=== PATIENT | female | born 1995 | race Hispanic/Latino ===

== ENCOUNTER → 2020-09-21 13:02 | Outpatient (CLI) | payer OTHER, SELFPAY ==
--- NOTE | 2020-09-21 13:05 | DI.US.S_ITS ---
PROCEDURE: US PELVIC COMPLETE INDICATIONS: RIGHT LOWER QUADRANT PAIN X 1 YEAR TECHNIQUE: Real-time scanning was performed of the pelvic organs, with image documentation. Additional endovaginal scanning was necessary due to incomplete visualization of the adnexal and endometrial structures by transabdominal scanning. COMPARISON: None. FINDINGS: Uterus: Uterus is normal in size at 8.1 x 4.4 x 3.5 cm. The endometrium measures 7.4 mm in combined thickness. Ovaries: Normal left ovary measuring 3.4 x 2.7 x 2.3 cm. The right ovary is suboptimally visualized secondary surrounding bowel. Within these limits the left ovary appears prominent measuring 5.2 x 2.2 x 3.3 cm. Other: No pathologic free abdominal or pelvic fluid. IMPRESSION: 1. The right ovary is not well visualized but appears to be mildly prominent in appearance. Recommend short-term follow-up ultrasound in 4-6 weeks for further assessment. 2. Normal appearance of the left ovary. Dictated by: Bulmaro BLANCO Interpreted: Kirk Grant MD on 09/21/2020 at 16:51 Approved by: Kirk Grant M.D. on 09/21/2020 at 17:28
[2020-09-21 14:06] LABS: Hematocrit 39.4 % (36-46); Hemoglobin 13.1 g/dL (12.0-16.0); Mean Corpuscular HGB Conc 33.4 % (30-36); Mean Corpuscular Hemoglobin 28.2 PG (26-34); Mean Corpuscular Volume 84.5 fL (80-100); Platelet Count 274 X10^3/uL (150-400); Red Blood Cell Count 4.66 X10^6/uL (4.0-5.2); Red Cell Distribution Width 13.1 % (11.6-14.8); White Blood Cell Count 7.8 X10^3/uL (4.5-11.0)
[2020-09-21 14:13] LABS: Bacteria Urine None Seen; RBC Urine None Seen (0-5/HPF); WBC Urine None Seen (0-5/HPF)
[2020-09-21 14:17] LABS: Alanine Aminotransferase 56 IU/L (<35); Albumin 4.5 g/dL (3.5-5.0); Albumin Globulin Ratio 1.2 (1.0-2.8); Alkaline Phosphatase 84 U/L (38-126); Aspartate Aminotransferase 37 IU/L (14-36); BUN Creatinine Ratio 22.6 (6-22); Bilirubin Total 0.3 mg/dL (0.2-1.3); Blood Urea Nitrogen 14 mg/dL (7-17); Calcium 9.4 mg/dL (8.4-10.2); Carbon Dioxide 27 mmol/L (22-32); Chloride 102 mmol/L (98-107); Cholesterol 162 mg/dL (140-199); Estimated Glomerular Filt Rate > 60.0 mL/min (>60); Globulin 3.9 g/dL (1.7-4.1); Glucose 108 mg/dL (70-100); HDL Cholesterol 45 mg/dL (40-60); HEMOLYSIS < 15 (0-50); LDL Cholesterol Calculated 96 mg/dL (<100); Potassium 4.2 mmol/L (3.4-5.1); Sodium 136 mmol/L (137-145); Total Protein 8.4 g/dL (6.3-8.2); Triglycerides 103 mg/dL (35-150)
[2020-09-21 15:07] LABS: TSH w/ Reflex to FT4 2.34 uIU/mL (0.47-4.68)
[2020-09-21 15:37] LABS: Appearance Urine UA CLEAR; Bilirubin Urine UA NEGATIVE (NEGATIVE); Color Urine UA YELLOW; Glucose Urine UA NEGATIVE (Negative); Ketones Urine UA NEGATIVE (NEGATIVE); Leukocyte Esterase Urine UA NEGATIVE (NEGATIVE); Nitrite Urine UA NEGATIVE (Negative); Occult Blood Urine UA NEGATIVE (Negative); Protein Urine UA NEGATIVE (Negative); Specific Gravity Urine UA <=1.005 (1.000-1.035); Urobilinogen Urine UA 0.2 E.U./dL (0.2)
[2020-09-21 15:45] LABS: Culture Indicated Urine Cult Not Indicated
== END ==
PROVIDERS: PCP Registered Nurse Diabetes Educator; Referring Provider Registered Nurse Diabetes Educator; Visit Provider Registered Nurse Diabetes Educator
DX: R10.31 Right lower quadrant pain (principal); E66.9 Obesity, unspecified; Z83.3 Family history of diabetes mellitus
CPT/HCPCS: 36415; 76830; 76856; 80053; 80061; 81001; 84443; 85027

== ENCOUNTER → 2020-10-03 18:16 | Outpatient (CLI) | payer OTHER, SELFPAY | PROVIDERS: PCP Registered Nurse Diabetes Educator; Referring Provider Registered Nurse Diabetes Educator; Visit Provider Registered Nurse Diabetes Educator | DX: R51.9 Headache, unspecified (principal); Z53.20 Procedure and treatment not carried out because of patient's decision for unspecified reasons; Z82.49 Family history of ischemic heart disease and other diseases of the circulatory system ==

== ENCOUNTER → 2020-11-08 14:36 | Outpatient (CLI) | payer OTHER, SELFPAY ==
[2020-11-08 16:22] LABS: Appearance Urine UA CLEAR; Bilirubin Urine UA NEGATIVE (NEGATIVE); Color Urine UA YELLOW; Glucose Urine UA NEGATIVE (Negative); Ketones Urine UA NEGATIVE (NEGATIVE); Leukocyte Esterase Urine UA 2+ (NEGATIVE); Nitrite Urine UA NEGATIVE (Negative); Occult Blood Urine UA 2+ (Negative); Protein Urine UA NEGATIVE (Negative); Specific Gravity Urine UA 1.015 (1.000-1.035); Urobilinogen Urine UA 0.2 E.U./dL (0.2)
[2020-11-08 16:24] LABS: Add Manual Diff / Slide Review NO; Basophils Absolute Auto 0 /uL (0-100); Basophils Percent Auto 0.5 % (0-2); Eosinophils Absolute Auto 100 /uL (0-450); Eosinophils Percent Auto 0.6 % (2-4); Hematocrit 37.2 % (36-46); Hemoglobin 12.8 g/dL (12.0-16.0); Lymphocytes Absolute Auto 1500 /uL (1100-4500); Lymphocytes Percent Auto 18.7 % (25-40); Mean Corpuscular HGB Conc 34.4 % (30-36); Mean Corpuscular Hemoglobin 28.8 PG (26-34); Mean Corpuscular Volume 83.8 fL (80-100); Monocytes Absolute Auto 700 /uL (0-900); Monocytes Percent Auto 9.1 % (3-14); Neutrophils Absolute Auto 5700 /uL (1500-7000); Neutrophils Percent Auto 71.1 % (50-75); Platelet Count 250 X10^3/uL (150-400); Red Blood Cell Count 4.45 X10^6/uL (4.0-5.2); Red Cell Distribution Width 13.3 % (11.6-14.8); White Blood Cell Count 8.1 X10^3/uL (4.5-11.0)
[2020-11-08 16:38] LABS: Hemoglobin A1C% w Est Avg Glu 4.9 % (4.0-6.0)
[2020-11-08 16:39] LABS: Glucose 91 mg/dL (70-100)
[2020-11-08 16:55] LABS: pH Urine UA 6.5 (4.5-8.0)
[2020-11-08 16:56] LABS: Bacteria Urine Few (2-10); Culture Indicated Urine Cult Not Indicated; RBC Urine 1-5/HPF (0-5/HPF); Squamous Epithelial Cell Urine 1-5 /HPF (0-5/HPF); WBC Urine 1-5/HPF (0-5/HPF)
[2020-11-09 05:37] LABS: RPR Screen Non Reactive (Non Reactive)
[2020-11-09 07:10] LABS: Varicella IgG Antibody <135 index (Immune >165)
[2020-11-09 17:28] LABS: HIV 1 & 2 Ab/Ag 4th Gen Combo NEGATIVE (NEGATIVE); Hep C Virus Ab w/Reflex Quant NEGATIVE s/c (NEGATIVE); Hepatitis B Surface Antigen NEGATIVE s/c (NEGATIVE); Rubella Antibody IgG 4.4 IU/mL (>15)
== END ==
PROVIDERS: PCP Registered Nurse Diabetes Educator; Referring Provider Obstetrics & Gynecology; Visit Provider Obstetrics & Gynecology
DX: Z34.81 Encounter for supervision of other normal pregnancy, first trimester (principal)
CPT/HCPCS: 36415; 80055; 81003; 81015; 82947; 83036; 86787; 86803; 86850; 86900; 86901; 87086; 87389

== ENCOUNTER → 2020-11-16 15:41 | Outpatient (CLI) | payer OTHER, SELFPAY | PROVIDERS: PCP Registered Nurse Diabetes Educator; Referring Provider Obstetrics & Gynecology; Visit Provider Obstetrics & Gynecology | DX: Z36.0 Encounter for antenatal screening for chromosomal anomalies (principal); Z3A.11 11 weeks gestation of pregnancy | CPT/HCPCS: 36415 ==

== ENCOUNTER → 2020-12-13 12:54 | Outpatient (CLI) | payer OTHER, SELFPAY ==
--- NOTE | 2020-12-13 13:00 | DIET.PN ---
Dietary Progress Note Assessment: 25y F referred to nutrition for help with gestational obesity. Pt is 15w gestation still endorses N/V/constipation, takes Zofran 1-2x/d. This is pts 3rd - has two boys, 9yo and 6yo, weight hx 150#-->175#, second 180#-->210#, currently 244#. Pt lives with father, , and two kids Pt is motivated to change eating habits as she has DM and heart disease in both sides of family including in her father who lives with her. Pt cooks for her father, when asking how she cooks for him she says she watches his cholesterol and sodium intake but does not know how to cook for his DM. HT: 154.9cm WT: 111kg (-4kg in 2mo) BMI:46.3 doesn't eat breakfast-feels nauseous 2pm has snack heavy meal for dinner sometimes bedtime snack of sandwich or candy Usual Day: wakes 8am water in am sometimes half can Dr. Rowley gets kids ready for school by 9am cleans house 2hr and gets ready sits at kitchen table and watches tv has snack before kids get home from school: cuppa noodles or sandwich c chips (turkey, lettuce, tomato, pickles, sprague, mustard) preps kids afternoon snack 5pm cooks dinner and eats dinner at 6pm tacos, hamburgers, lasagna, spaghetti eats together as family cleans up house get ready for bed in bed by 9:30pm Exercise: Walks 10 min to and from kids' school for total 20min walks 45min around block with her father mostly during nice weather but not as much if raining or cold Labs: FBG 91, A1c 4.9 Nutrition Diagnosis: morbid obesity in r/t undesirable food choices, physical inactivity, and nutrition related knowledge deficit aeb BMI 46, pt is nearly +100# since first 10y ago, pt has inconsistent food pattern, pt reports not knowing how to read food labels or what to eat to be healthy. Interventions: 1. To support weight regulation and healthy , using handout, introduced pt to hunger scale to start to identify her hunger and fullness cues. Pt will start eating at a 3 and stopping at an 8 to better understand ideal meal timing and portion sizes for her body. 2. To support weight regulation, educated pt on plate balance using handout and food models. Encouraged pt to create meals and snacks which are 1/4 pro, 1/4 cho, and 1/2 F/nonstarchy veggies to ensure nutritional adequacy and appetite satisfaction limiting fruit to 2 servings per day. Encouraged pt to use this model for family meal planning. Pt and RD used food models to build and adjust favorite family meals to be healthier options including appropriate portion control. 3. To encourage healthy weight, encouraged pt to walk 30-60min daily. 4. Since pt has hx of GDM and has high BMI as well as in home father c DM2, educated pt on diabetic diet setting goal for her of 30-45g CHO/meal and 45-60g/meal for her father. This was reinforced c handout. Using food labels educated pt on reading food labels and adjusting based on serving size consumed, focusing on carbohydrate level. 5. Provided pt with several handouts to support her education including: [employer] Plate, Healthy Snacks <200kcals, Nutrition MNT. EER: 30-45g CHO/meal, limit added sugar, plate balance, daily 30-[address] Impression: Pt was very happy c education today. She had many realizations in session and is motivated to adjust diet of her household to be supportive of everyone's health. Pt very motivated to not pass DM and cardiovascular disease to her children and now has tools to better regulate eating and cooking to achieve this goal. Monitoring/Evaluations: pt will call RD to schedule f/u as needed
== END ==
PROVIDERS: PCP Registered Nurse Diabetes Educator; Referring Provider Registered Nurse Diabetes Educator; Visit Provider Registered Nurse Diabetes Educator
DX: O21.9 Vomiting of pregnancy, unspecified (principal); K59.00 Constipation, unspecified; Z71.3 Dietary counseling and surveillance; Z3A.15 15 weeks gestation of pregnancy
CPT/HCPCS: 97802

== ENCOUNTER → 2021-01-22 10:31 | Outpatient (CLI) | payer OTHER, SELFPAY ==
--- NOTE | 2021-01-22 10:33 | DI.US.S_ITS ---
PROCEDURE: US OB >= 14 WEEKS FETUS INDICATIONS: ANATOMY OUTSIDE/PRIOR DATING DATA: Last menstrual period (LMP): Unknown . LMP-based estimated date of delivery (AILEEN): Un known . First dating scan (date and location): 11/08/2020 . Estimated date of delivery (AILEEN) from first dating scan: 06/06/2021 . TECHNIQUE: Real-time scanning was performed of the fetus, with image documentation and biometric measurements. COMPARISON: [facility], , OB <= 14 WEEKS FETUS, 11/08/2020, 14:20. FINDINGS: General: A single living intrauterine gestation is present. Presentation: Variable. Placenta: Placental position is anterior , without previa. Amniotic fluid index: 16.7 cm, normal range is 5-24 cm. heart rate: 141 beats per minute. Maternal cervical canal: 6.1 cm long. Normal lower limit is 2.5 cm. biometrics: Biparietal diameter: 4.8 cm 20 weeks 4 days Head circumference: 18.4 cm 20 weeks 5 days Abdominal circumference: 17.2 cm 22 weeks 1 day Femur length: 3.4 cm 20 weeks 5 days Estimated gestational age from initial scan: 20 weeks 5 days Composite gestational age from present scan: 21 weeks 0 days Estimated weight and percentile: 421 g, 81st percentile Measurement variability for biometric dating: +/- 7 days from 14 weeks to 15 weeks 6 days gestation, +/- 10 days from 16 weeks to 21 weeks 6 days gestation, +/- 2 weeks from 22 weeks to 27 weeks 6 days gestation, +/- 3 weeks for 28 weeks gestation or later. weight reference: 4500 g or EFW >90/95% is considered macrosomia or large for gestational age. EFW <10% is small for gestational age. EFW 5% or less is considered intra-uterine growth restriction. Anatomic survey: Neuro: Ventricles are non-dilated at less than 10 mm. Cisterna magna is normal at 3-11 mm. Cerebellum is normal in size and morphology. Nuchal skin fold: Nuchal fold is noted to measure approximately 7.4 mm. Normal at less than 6 mm between 14-21 weeks gestational age. Face: Nose and lips, facial profile are normal. Spine: No evidence for spina bifida. Heart: 4-chambered heart is present, with normal ventricular outflow tracts. Diaphragm: Diaphragm is intact. Stomach: Left-sided stomach is present. Kidneys: No hydronephrosis. Normal is less than 5 mm in 2nd trimester, less than 7 mm in 3rd trimester. Cord: 3-vessel cord has orthotopic insertion. Bladder: Normal in size. Extremities: All 4 extremities identified. IMPRESSION: 1. Single live intrauterine . 2. Overall, in at any is within normal limits. 3. It is noted nuchal fold appears prominent. Recommend correlation with appropriate clinical history and laboratory values with follow-up imaging and specialized referral if indicated. Dictated by: Maira Peace M.D. on 01/22/2021 at 16:36 Approved by: Maira Peace M.D. on 01/22/2021 at 16:38
== END ==
PROVIDERS: PCP Registered Nurse Diabetes Educator; Referring Provider Obstetrics & Gynecology; Visit Provider Obstetrics & Gynecology
DX: Z34.82 Encounter for supervision of other normal pregnancy, second trimester (principal); Z3A.20 20 weeks gestation of pregnancy
CPT/HCPCS: 76811

== ENCOUNTER → 2021-03-01 13:26 | Outpatient (CLI) | payer OTHER, MEDICAID, SELFPAY ==
[2021-03-01 15:42] LABS: Hematocrit 34.2 % (36-46); Hemoglobin 11.5 g/dL (12.0-16.0)
[2021-03-01 15:52] LABS: GTT (PREG) 1 Hour PP 50gm Dose 135 mg/dL (76-139)
== END ==
PROVIDERS: PCP Registered Nurse Diabetes Educator; Referring Provider Obstetrics & Gynecology; Visit Provider Obstetrics & Gynecology
DX: Z34.82 Encounter for supervision of other normal pregnancy, second trimester (principal); Z3A.26 26 weeks gestation of pregnancy
CPT/HCPCS: 36415; 82950; 85014; 85018

== ENCOUNTER → 2021-04-08 13:46 | Outpatient (CLI) | payer OTHER, MEDICAID, SELFPAY ==
[2021-04-08 17:43] LABS: Hepatitis B Surface Antigen NEGATIVE s/c (NEGATIVE)
[2021-04-09 10:26] LABS: Bile Acids 11.1 umol/L (0.0-10.0); Hepatitis B Core AB w/Reflex Negative (Negative)
== END ==
PROVIDERS: PCP Registered Nurse Diabetes Educator; Referring Provider Obstetrics & Gynecology; Visit Provider Obstetrics & Gynecology
DX: O99.719 Diseases of the skin and subcutaneous tissue complicating pregnancy, unspecified trimester (principal); R74.8 Abnormal levels of other serum enzymes; L29.9 Pruritus, unspecified
CPT/HCPCS: 36415; 82239; 86704; 87340

== ENCOUNTER 2021-04-09 12:40 | Outpatient (CLI) | payer OTHER, MEDICAID, SELFPAY ==
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
== END 2021-04-09 13:35 | disposition home or self-care (01) ==
LOC: LABOR 13:39 → OB 04-11 13:22
PROVIDERS: PCP Registered Nurse Diabetes Educator; Referring Provider Obstetrics & Gynecology; Visit Provider Obstetrics & Gynecology
DX: O26.613 Liver and biliary tract disorders in pregnancy, third trimester (principal); K83.1 Obstruction of bile duct; Z3A.31 31 weeks gestation of pregnancy
CPT/HCPCS: 59025; G0378; G0379

== ENCOUNTER → 2021-04-15 12:11 | Outpatient (CLI) | payer OTHER, MEDICAID, SELFPAY ==
[2021-04-15 13:35] LABS: Alanine Aminotransferase 47 IU/L (<35); Albumin 3.2 g/dL (3.5-5.0); Albumin Globulin Ratio 0.9 (1.0-2.8); Alkaline Phosphatase 145 U/L (38-126); Aspartate Aminotransferase 35 IU/L (14-36); Bilirubin Total 0.4 mg/dL (0.2-1.3); Bilirubin Unconjugated 0.3 mg/dL (0.0-1.1); Globulin 3.5 g/dL (1.7-4.1); HEMOLYSIS < 15 (0-50); Total Protein 6.7 g/dL (6.3-8.2)
[2021-04-16 08:53] LABS: Bile Acids 6.2 umol/L (0.0-10.0)
== END ==
PROVIDERS: PCP Registered Nurse Diabetes Educator; Referring Provider Obstetrics & Gynecology; Visit Provider Obstetrics & Gynecology
DX: Z34.90 Encounter for supervision of normal pregnancy, unspecified, unspecified trimester (principal); K76.89 Other specified diseases of liver
CPT/HCPCS: 36415; 80076; 82239

== ENCOUNTER 2021-04-15 12:16 | Outpatient (CLI) | payer OTHER, MEDICAID, SELFPAY | END 2021-04-15 13:15 | disposition home or self-care (01) | LOC: LABOR 13:39 → OB 04-16 07:38 | PROVIDERS: PCP Registered Nurse Diabetes Educator; Referring Provider Obstetrics & Gynecology; Visit Provider Obstetrics & Gynecology | DX: O99.613 Diseases of the digestive system complicating pregnancy, third trimester (principal); K80.20 Calculus of gallbladder without cholecystitis without obstruction; O99.213 Obesity complicating pregnancy, third trimester; Z3A.32 32 weeks gestation of pregnancy; Z34.90 Encounter for supervision of normal pregnancy, unspecified, unspecified trimester; K76.89 Other specified diseases of liver | CPT/HCPCS: 36415; 59025; 80076; 82239; G0378; G0379 ==

== ENCOUNTER → 2021-04-22 11:55 | Outpatient (CLI) | payer OTHER, MEDICAID, SELFPAY ==
[2021-04-22 14:35] LABS: Alanine Aminotransferase 34 IU/L (<35); Albumin 3.1 g/dL (3.5-5.0); Albumin Globulin Ratio 0.9 (1.0-2.8); Alkaline Phosphatase 160 U/L (38-126); Aspartate Aminotransferase 28 IU/L (14-36); Bilirubin Total 0.2 mg/dL (0.2-1.3); Bilirubin Unconjugated 0.1 mg/dL (0.0-1.1); GTT (PREG) 1 Hour PP 50gm Dose 142 mg/dL (76-139); Globulin 3.3 g/dL (1.7-4.1); HEMOLYSIS < 15 (0-50); Total Protein 6.4 g/dL (6.3-8.2)
[2021-04-23 09:20] LABS: Bile Acids 36.8 umol/L (0.0-10.0)
== END ==
PROVIDERS: Obstetrics & Gynecology; PCP Registered Nurse Diabetes Educator; Referring Provider Family Medicine; Visit Provider Family Medicine
DX: O99.891 Other specified diseases and conditions complicating pregnancy (principal); K76.89 Other specified diseases of liver; R73.01 Impaired fasting glucose; Z3A.33 33 weeks gestation of pregnancy; Z83.3 Family history of diabetes mellitus
CPT/HCPCS: 36415; 80076; 82239; 82950

== ENCOUNTER 2021-04-22 11:59 | Outpatient (CLI) | payer OTHER, MEDICAID, SELFPAY ==
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
== END 2021-04-22 12:43 | disposition home or self-care (01) ==
LOC: LABOR 12:21 → OB 04-23 07:01
PROVIDERS: PCP Registered Nurse Diabetes Educator; Referring Provider Family Medicine; Visit Provider Family Medicine
DX: O26.613 Liver and biliary tract disorders in pregnancy, third trimester (principal); K83.1 Obstruction of bile duct; Z3A.33 33 weeks gestation of pregnancy; O99.891 Other specified diseases and conditions complicating pregnancy; K76.89 Other specified diseases of liver; R73.01 Impaired fasting glucose; Z83.3 Family history of diabetes mellitus
CPT/HCPCS: 36415; 59025; 80076; 82239; 82950; G0378; G0379

== ENCOUNTER → 2021-04-30 08:51 | Outpatient (CLI) | payer OTHER, SELFPAY ==
[2021-04-30 10:45] LABS: Glucose Fasting Gestational 93 mg/dL (76-95)
[2021-04-30 12:08] LABS: Glucose 1 Hour Gest 142 mg/dL (76-180)
[2021-04-30 13:07] LABS: Glucose 2 Hour Gest 122 mg/dL (76-155)
[2021-04-30 13:10] LABS: Glucose Tol Interp,Gestational INTERPRETATION
[2021-04-30 14:30] LABS: Glucose 3 Hour Gest 116 mg/dL (76-140)
[2021-05-04 11:51] LABS: Bile Acids 9.2 umol/L (0.0-10.0)
== END ==
PROVIDERS: PCP Registered Nurse Diabetes Educator; Referring Provider Obstetrics & Gynecology; Visit Provider Obstetrics & Gynecology
DX: O26.613 Liver and biliary tract disorders in pregnancy, third trimester (principal); K83.1 Obstruction of bile duct; O99.810 Abnormal glucose complicating pregnancy
CPT/HCPCS: 82951; 82952

== ENCOUNTER 2021-04-30 08:59 | Outpatient (CLI) | payer OTHER, SELFPAY | END 2021-04-30 09:46 | disposition home or self-care (01) | LOC: OB 05-01 15:22 | PROVIDERS: PCP Registered Nurse Diabetes Educator; Referring Provider Obstetrics & Gynecology; Visit Provider Obstetrics & Gynecology | DX: O26.613 Liver and biliary tract disorders in pregnancy, third trimester (principal); K83.1 Obstruction of bile duct; O99.810 Abnormal glucose complicating pregnancy; O99.213 Obesity complicating pregnancy, third trimester; Z3A.34 34 weeks gestation of pregnancy | CPT/HCPCS: 36415; 59025; 82239; 82951; 82952; G0378; G0379 ==

== ENCOUNTER 2021-05-06 12:09 | Outpatient (CLI) | payer OTHER, SELFPAY ==
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
== END 2021-05-06 13:10 | disposition home or self-care (01) ==
LOC: LABOR 12:31 → OB 05-09 06:32
PROVIDERS: PCP Registered Nurse Diabetes Educator; Referring Provider Obstetrics & Gynecology; Visit Provider Obstetrics & Gynecology
DX: O26.613 Liver and biliary tract disorders in pregnancy, third trimester (principal); K83.1 Obstruction of bile duct; O47.03 False labor before 37 completed weeks of gestation, third trimester; Z3A.35 35 weeks gestation of pregnancy
CPT/HCPCS: 36415; 59025; 82239; G0378; G0379

== ENCOUNTER → 2021-05-06 13:09 | Outpatient (CLI) | payer OTHER, SELFPAY ==
[2021-05-07 08:40] LABS: Bile Acids 16.2 umol/L (0.0-10.0)
== END ==
PROVIDERS: PCP Registered Nurse Diabetes Educator; Referring Provider Obstetrics & Gynecology; Visit Provider Obstetrics & Gynecology
DX: O26.613 Liver and biliary tract disorders in pregnancy, third trimester; K83.1 Obstruction of bile duct; Z3A.35 35 weeks gestation of pregnancy
CPT/HCPCS: 36415; 82239

== ENCOUNTER → 2021-05-08 10:07 | Outpatient (CLI) | payer OTHER, SELFPAY ==
[2021-05-09 08:42] LABS: Strep Grp B PCR NEG for Grp B Strep
== END ==
PROVIDERS: PCP Registered Nurse Diabetes Educator; Visit Provider Obstetrics & Gynecology
DX: Z34.83 Encounter for supervision of other normal pregnancy, third trimester (principal); Z3A.36 36 weeks gestation of pregnancy
CPT/HCPCS: 87653

== ENCOUNTER → 2021-05-13 11:51 | Outpatient (CLI) | payer OTHER, SELFPAY ==
[2021-05-14 09:35] LABS: Bile Acids 30.8 umol/L (0.0-10.0)
== END ==
PROVIDERS: PCP Registered Nurse Diabetes Educator; Referring Provider Obstetrics & Gynecology; Visit Provider Obstetrics & Gynecology
DX: K83.1 Obstruction of bile duct (principal); O26.613 Liver and biliary tract disorders in pregnancy, third trimester
CPT/HCPCS: 36415; 82239

== ENCOUNTER 2021-05-13 11:59 | Outpatient (CLI) | payer OTHER, SELFPAY | END 2021-05-13 13:15 | disposition home or self-care (01) | LOC: LABOR 12:10 → OB 05-14 07:00 | PROVIDERS: PCP Registered Nurse Diabetes Educator; Referring Provider Obstetrics & Gynecology; Visit Provider Obstetrics & Gynecology | DX: O26.613 Liver and biliary tract disorders in pregnancy, third trimester (principal); K83.1 Obstruction of bile duct; O99.213 Obesity complicating pregnancy, third trimester; Z3A.36 36 weeks gestation of pregnancy | CPT/HCPCS: 36415; 59025; 82239; G0378; G0379 ==

== ENCOUNTER 2021-05-16 08:08 | Inpatient (IN) | payer OTHER, SELFPAY ==
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
[2021-05-16] MEDS: LACTATED RINGERS 1,000 ML 100 ML IV ×2 (09:20→10:58)
[2021-05-16 09:58] LABS: Add Manual Diff / Slide Review NO; Basophils Absolute Auto 100 /uL (0-100); Basophils Percent Auto 0.6 % (0-2); Eosinophils Absolute Auto 0 /uL (0-450); Eosinophils Percent Auto 0.3 % (2-4); Hematocrit 35.8 % (36-46); Hemoglobin 11.6 g/dL (12.0-16.0); Lymphocytes Absolute Auto 1400 /uL (1100-4500); Lymphocytes Percent Auto 11.9 % (25-40); Mean Corpuscular HGB Conc 32.2 % (30-36); Mean Corpuscular Hemoglobin 25.5 PG (26-34); Monocytes Absolute Auto 600 /uL (0-900); Monocytes Percent Auto 4.6 % (3-14); Neutrophils Absolute Auto 9900 /uL (1500-7000); Neutrophils Percent Auto 82.6 % (50-75); Platelet Count 192 X10^3/uL (150-400); Red Blood Cell Count 4.53 X10^6/uL (4.0-5.2); Red Cell Distribution Width 14.7 % (11.6-14.8); White Blood Cell Count 11.9 X10^3/uL (4.5-11.0)
[2021-05-16 10:57] LABS: COVID19 - ADMIT (NP swab/PCR) Negative (Negative)
[2021-05-16 11:00] VITALS: BP 127/71
--- NOTE | 2021-05-16 19:13 | PM.OBPRVD ---
Labor & Delivery Delivery date: 05/16/21 Cervical ripening method: none Induction method: none Delivery augmentation: rupture of membranes Delivery monitor: external FHT and external uterine Route of delivery: Episiotomy description: None L&D Laceration Description: Perineal - 2nd Degree Delivery repair: chromic Estimated blood loss (mL): 400 Anesthesia Type: Epidural Complications: None Narrative: The patient labored spontaneously and pushed only 2 or 3 times in order to spontaneously deliver the vertex over an intact perineum.? The delivered MO and a tight shoulder and body cord were noted.? The shoulders delivered easily and the cord loops were reduced following delivery of the body.? The infant was immediately placed skin to skin and cord clamping was delayed for over a minute.? Although there was mild to moderate meconium, the infant had no respiratory issues whatsoever after suctioning of the taye and nasopharynx with a bulb syringe.? After clamping and cutting of the cord, routine cord blood was obtained for laboratory evaluation.? The placenta was delivered spontaneously with gentle cord traction and counter pressure on the lower uterine segment.? Placenta was seen to be intact with a central cord insertion and 3 vessels were noted.? Inspection of the perineum showed a relatively superficial second-degree midline perineal laceration which was closed under epidural anesthesia with 2-0 chromic in the usual manner.? Sponge and needle counts were correct and the delivery concluded with both mother and infant doing well.? Estimated blood loss was 400 cc.? Complications experienced: none. Baby 1: gender: Male Presentation: vertex Position: Right Occiput Anterior Placenta delivery description: Spontaneous Cord Vessel Description: 3 Vessels score (1 min): 9 weight: 8 lb 0.997 oz Plan for aftercare: Routine care
[2021-05-17] MEDS: ACETAMINOPHEN 325 MG TABLET 650 MG PO (03:27)
[2021-05-17 05:52] LABS: Hematocrit 31.2 % (36-46); Hemoglobin 10.2 g/dL (12.0-16.0)
[2021-05-17] MEDS: IBUPROFEN 600 MG TABLET PO ×2 (07:46→16:42)
[2021-05-17] MEDS: OXYCODONE IR 5 MG TABLET PO (07:46)
[2021-05-17] MEDS: DOCUSATE 100 MG CAPSULE PO (07:46)
--- NOTE | 2021-05-17 13:06 | P.DS_ITS ---
Discharge Providers Provider Date of admission: 05/16/21 08:08 Discharge Date: 05/17/21 Primary care physician: TISHA Romero Consults: 05/16/21 08:58 Consult to Anesthesiology Urgent Comment: Consulting Provider: Paulino Wang Reason for consultation: BIJU placement in labor Has provider been notified: No 05/17/21 19:33 Consult to Residence Manager Routine Comment: Discharge provider: Paulino Wang MD Summary Hospital Course Date Patient Seen: 05/17/21 Time Patient Seen: 13:06 Diagnoses: Intrauterine gestation, Kessler, term, delivered Intrahepatic cholestasis of Hospital Course: The patient was admitted on the morning of 05/16/2021 in active labor. She progressed spontaneously in active labor with a continuous lumbar epidural in place and on the afternoon of 05/16/2021 delivered spontaneously a viable male infant over an intact perineum sustaining a superficial second-degree perineal laceration which was repaired in the usual manner. Following delivery the patient has done extremely well with prompt return in bowel bladder function, she is ambulating independently, tolerating a regular diet, and her pain is well controlled. She will be discharged at this time to home in an afebrile normotensive condition with plans for follow-up in 6 weeks. She has made no firm decisions regarding contraception. Peripartum Data Infant Delivery Method: Natural Vaginal Laceration Description: Perineal - 2nd Degree complications: none 1: Gender: Male Disposition of : home Discharge Diagnosis (1) with complication, delivered: Status: Acute (2) Intrahepatic cholestasis of in third trimester: Status: Acute Status at Discharge Cognitive/behavioral status at discharge: oriented and at baseline, oriented Functional status at discharge: independent ambulation Overall status at discharge: patient is progressing back to baseline Time Spent with Patient Time attestation: Total time spent providing and/or coordinating discharge services: Time spent: Less than 30 minutes Objective Labs Result Diagrams: 05/17/21 05:30 Labs: Laboratory Results - last 24 hr 05/17/21 05:30 Hgb 10.2 L Hct 31.2 L Exam Const General: cooperative and comfortable Nutritional Appearance: overweight Orientation: alert and oriented x3 HENMT Head: normal to inspection Eyes General: appearance normal, both eyes and all related structures Neck Neck: normal visual inspection Resp Effort & Inspection: normal respiratory effort and able to speak in complete sentences GI Inspection: normal to inspection, abdominal wall ecchymosis and other (U-4, NT, firm) Palpation: soft and no hepatosplenomegaly External Female Exam: other (Laceration repair intact, minimal bruising) Psych Appearance: grossly normal Mental Status: mental status grossly normal Speech and Movement: speech and movement normal Mood: congruent mood Affect: normal affect Attitude: cooperative Thought Process: normal Thought Content: normal Judgment: judgment good Discharge Plan Discharge Plan Patient Disposition: Home Provider Discharge Comment: Please review the written discharge instructions. Your follow-up visit will be in 6 weeks and I look forward to seeing you then. In the meanwhile if you have questions or concerns, please do not hesitate to contact our office. Discharge orders & Medications Prescriptions: New ibuprofen 600 mg Tablet 600 mg PO Q6HR PRN (Reason: Pain, Mild (1-3)) Qty: 60 RF: 3 oxycodone 5 mg Tablet 5 mg PO Q4HR PRN (Reason: Pain, Moderate (4-6)) Qty: 10 RF: 0 Continued prenat.vits,maxwell,[id number] 1 tab PO DAILY RF: 0 ondansetron 4 mg tablet,disintegrating See Rx Instructions .ROUTE .COMPLEX Qty: 20 RF: 2 Discontinued hydroxyzine HCl 50 mg tablet 50 mg PO TID PRN (Reason: itching) Qty: 60 RF: 2 hydrocortisone 2.5 % cream 1 applic topical TID PRN (Reason: itching) Qty: 30 RF: 4 Follow up/Referrals: Paulino Wang MD [Physician] - ( appt w/ Dr. Wang Thursday, No v. 3rd @ 3pm) Discharge Health Status Multidrug resistant organism: No MDRO Diet/Activity/Treatments Diet: Diet as Tolerated Activity: As tolerated Skin/Wound/Dressing Care Report to your healthcare provider any signs of infection, such as:: chills, fever, increased pain, unusual drainage and unusual redness Visit Report/Discharge Packet Instructions: DI for Labor and Delivery, Vaginal , DI for and Nipple Soreness, DI for Prescription Opioid Use Stand Alone Forms: Discharge: Care Discharge Data Primary Care Provider: Franco Andrews
[2021-05-17] MEDS: SIMETHICONE 80 MG TABLET 160 MG PO (16:42)
[2021-05-17] MEDS: BISACODYL 10 MG SUPP PR (16:43)
[2021-05-17] MEDS: MEASLES,MUMPS,RUBELLA VACC/PF 0.5 ML VIAL SUBCUT (18:35)
== END 2021-05-17 19:22 | disposition home or self-care (01) | DRG 805 ==
PROVIDERS: Admitting Provider Obstetrics & Gynecology; PCP Registered Nurse Diabetes Educator; Referring Provider Registered Nurse Diabetes Educator; Visit Provider Obstetrics & Gynecology
DX: O26.62 Liver and biliary tract disorders in childbirth (principal); K83.1 Obstruction of bile duct; Z37.0 Single live birth; Z3A.37 37 weeks gestation of pregnancy; O70.1 Second degree perineal laceration during delivery; O69.81X0 Labor and delivery complicated by cord around neck, without compression, not applicable or unspecified
CPT/HCPCS: 01967; 36415; 59400; 59409; 85014; 85018; 85025; 86850; 86900; 86901; 87635; C9803; G0379

== ENCOUNTER → 2021-09-02 12:05 | Outpatient (CLI) | payer OTHER, SELFPAY ==
[2021-09-02 13:35] LABS: Add Manual Diff / Slide Review NO; Basophils Absolute Auto 0 /uL (0-100); Basophils Percent Auto 0.4 % (0-2); Eosinophils Absolute Auto 200 /uL (0-450); Eosinophils Percent Auto 2.3 % (2-4); Hematocrit 36.3 % (36-46); Hemoglobin 12.3 g/dL (12.0-16.0); Lymphocytes Absolute Auto 1900 /uL (1100-4500); Lymphocytes Percent Auto 21.4 % (25-40); Mean Corpuscular HGB Conc 33.9 % (30-36); Mean Corpuscular Hemoglobin 26.2 PG (26-34); Mean Corpuscular Volume 77.5 fL (80-100); Monocytes Absolute Auto 600 /uL (0-900); Monocytes Percent Auto 7.4 % (3-14); Neutrophils Absolute Auto 6000 /uL (1500-7000); Neutrophils Percent Auto 68.5 % (50-75); Platelet Count 271 X10^3/uL (150-400); Red Blood Cell Count 4.68 X10^6/uL (4.0-5.2); Red Cell Distribution Width 14.5 % (11.6-14.8); White Blood Cell Count 8.7 X10^3/uL (4.5-11.0)
[2021-09-02 14:09] LABS: Alanine Aminotransferase 35 IU/L (<35); Albumin 4.4 g/dL (3.5-5.0); Albumin Globulin Ratio 1.2 (1.0-2.8); Alkaline Phosphatase 98 U/L (38-126); Amylase 64 U/L (30-110); Aspartate Aminotransferase 26 IU/L (14-36); BUN Creatinine Ratio 15.8 (6-22); Bilirubin Total 0.3 mg/dL (0.2-1.3); Blood Urea Nitrogen 12 mg/dL (7-17); Calcium 9.8 mg/dL (8.4-10.2); Carbon Dioxide 29 mmol/L (22-32); Chloride 103 mmol/L (98-107); Estimated Glomerular Filt Rate > 60.0 mL/min (>60); Globulin 3.6 g/dL (1.7-4.1); Glucose 107 mg/dL (70-100); HEMOLYSIS < 15 (0-50); Lipase 69 U/L (23-300); Potassium 5.2 mmol/L (3.4-5.1); Sodium 138 mmol/L (137-145)
== END ==
PROVIDERS: PCP Registered Nurse Diabetes Educator; Referring Provider Registered Nurse Diabetes Educator; Visit Provider Registered Nurse Diabetes Educator
DX: R10.13 Epigastric pain (principal)
CPT/HCPCS: 36415; 80053; 82150; 83690; 85025

== ENCOUNTER → 2021-09-17 15:44 | Outpatient (CLI) | payer OTHER, SELFPAY ==
--- NOTE | 2021-09-17 15:45 | DI.US.S_ITS ---
PROCEDURE: US ABDOMEN LIMITED INDICATIONS: eval epigastric pain/R/O GBD TECHNIQUE: Real-time focused scanning was performed of the abdomen, with image documentation. COMPARISON: None. FINDINGS: Liver is diffusely increased in echogenicity. No focal hepatic abnormalities identified. Normal hepatic size. Multiple gallstones present. No gallbladder wall thickening or pericholecystic fluid. Negative sonographic Xiong sign. No biliary dilatation. Pancreas suboptimally visualized. IMPRESSION: 1. Increased hepatic echogenicity noted possibly related to hepatic steatosis but other sources of hepatocellular disease cannot be excluded. Recommend clinical correlation. 2. Cholelithiasis without evidence for cholecystitis. Dictated by: Bulmaro BLANCO Interpreted: Bhupinder Salazar MD on 09/17/2021 at 17:07 Transcribed by: BAKARI on 09/17/2021 at 17:07 Approved by: Bhupinder Salazar M.D. on 09/17/2021 at 17:19
== END ==
PROVIDERS: PCP Registered Nurse Diabetes Educator; Referring Provider Registered Nurse Diabetes Educator; Visit Provider Registered Nurse Diabetes Educator
DX: R10.13 Epigastric pain (principal); K80.20 Calculus of gallbladder without cholecystitis without obstruction
CPT/HCPCS: 76705

== ENCOUNTER → 2021-09-26 11:56 | Outpatient (CLI) | payer OTHER, SELFPAY ==
[2021-09-26 12:33] LABS: COVID19 -Nasal RAPID POSITIVE (Negative)
== END ==
PROVIDERS: PCP Registered Nurse Diabetes Educator; Visit Provider Physician Assistant
DX: U07.1 COVID-19 (principal); Z20.822 Contact with and (suspected) exposure to COVID-19; J02.9 Acute pharyngitis, unspecified
CPT/HCPCS: 87070; 87635

== ENCOUNTER → 2021-10-16 12:52 | Outpatient (CLI) | payer OTHER, SELFPAY ==
[2021-10-16 15:04] LABS: HEMOLYSIS < 15 (0-50); Iron 70 ug/dL (37-170)
[2021-10-16 15:14] LABS: Percent Iron Saturation 19 % (15-50); Total Iron Binding Capacity 365 ug/dL (265-497); Transferrin 279 mg/dL (206-381)
[2021-10-16 15:39] LABS: Ferritin 23 ng/mL (6-137)
[2021-10-16 19:28] LABS: Hepatitis B Surface Antigen NEGATIVE s/c (NEGATIVE)
[2021-10-16 19:47] LABS: Hep C Virus Ab w/Reflex Quant NEGATIVE s/c (NEGATIVE)
[2021-10-17 07:40] LABS: Hepatitis A Ab IgM Negative (Negative); Hepatitis A Ab Total Positive (Negative); Hepatitis B Core AB w/Reflex Negative (Negative)
== END ==
PROVIDERS: PCP Registered Nurse Diabetes Educator; Referring Provider Registered Nurse Diabetes Educator; Visit Provider Registered Nurse Diabetes Educator
DX: K80.20 Calculus of gallbladder without cholecystitis without obstruction (principal); R94.8 Abnormal results of function studies of other organs and systems
CPT/HCPCS: 36415; 82728; 83540; 83550; 86704; 86708; 86803; 87340

== ENCOUNTER → 2021-12-10 09:23 | Outpatient (CLI) | payer OTHER, SELFPAY ==
[2021-12-10 11:24] LABS: COVID19 -Nasal RAPID Negative (Negative)
== END ==
PROVIDERS: PCP Registered Nurse Diabetes Educator; Visit Provider Surgery
DX: Z01.812 Encounter for preprocedural laboratory examination (principal); Z20.822 Contact with and (suspected) exposure to COVID-19
CPT/HCPCS: 87635; C9803

== ENCOUNTER 2021-12-11 09:47 | Day surgery (SDC) | payer OTHER, SELFPAY ==
[2021-12-10 08:40] VITALS: BMI 47.2
[2021-12-11] VITALS (10 sets, daily range): BP systolic 126–148; BP diastolic 70–92; PULSE 82–102; RESP 13–26; TEMP 36.1–36.6; O2SAT 93–99; BMI 47.2
--- NOTE | 2021-12-11 | PATH_ITS ---
[facility] Accession Number: [id number] . 01 Material submitted: . gallbladder - GALBLADDER . 02 Diagnosis: Gallbladder, Cholecystectomy: Chronic cholecystitis with cholelithiasis and cholesterolosis. Negative for dysplasia and malignancy. MRV 12/16/2021 1045 Local . 02 Electronically signed: . Herminia Gee MD, Pathologist NPI- [id number] . 01 Gross description: . The specimen is received in formalin, labeled gallbladder, and consists of a disrupted gallbladder measuring 7.5 x 2.5 x 2.0 cm, with an average wall thickness of 0.2 cm. There is a 1.2 cm defect involving the otherwise grossly unremarkable hepatic bed (inked blue). The serosal surfaces exhibit no lesions or masses. The cystic duct (0.3 cm in diameter) is occluded by an aggregate of yellow bosselated calculi measuring 2.3 x 2.3 x 0.8 cm in aggregate. Opening the specimen reveals a scant amount of hemorrhagic material and yellow stippled/hemorrhagic mucosa. The specimen is representatively submitted as follows: . A1: Cystic duct margin, en face, with floor representative sections of fundus, neck, and body. ([id number]) /MRV 12/12/2021 1813 Local . 02 Pathologist provided ICD-10: K80.60 . 02 CPT . 314768 Specimen Comment: A courtesy copy of this report has been sent to [phone] Performed at: 01 [facility] [address] [id number] MD Doroteo Singh MD Phone: [phone] Performed at: 02 [facility] [id number] [place] [id number] MD Herminia Gee MD Phone: [phone]
[2021-12-11] MEDS: LACTATED RINGERS 1,000 ML 100 ML IV (10:34)
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
[2021-12-11] MEDS: CEFAZOLIN 2 GM/20 ML SYRINGE IV (12:43)
--- NOTE | 2021-12-11 13:09 | SUR.OPER ---
Supine on padded OR bed, head on pillow, wedge under torso, safety belt at thigh, left arm padded and tucked at side. Right arm secured on padded arm board <90 degrees abduction. Folded blanket and gel pad under right arm. Legs uncrossed. Padded footboard in place. Tape over blanket to secure lower legs. Gel pad under heals.
--- NOTE | 2021-12-11 13:15 | SUR.OPER ---
Cell phone and glasses placed in patient belonging bag in pre-op.
[2021-12-11] MEDS: ACETAMINOPHEN IV 1,000 MG/100 ML VIAL 400 MG IV (13:17)
[2021-12-11] MEDS: BUPIVACAINE 0.25% (PF) VIAL 30 ML INJ (13:32)
[2021-12-11] MEDS: HYDROMORPHONE 2 MG INJ IV ×4 (14:25→15:11)
--- NOTE | 2021-12-11 14:30 | PM.OP.1 ---
Operative Date/Time/Diagnoses Date of procedure: 12/11/21 Time of procedure: 14:30 Pre-op diagnosis: biliary colic Post-op diagnosis: same Procedure & Clinicians Procedure: laparoscopic cholecystectomy Same procedure as scheduled: Yes Indications: biliary colic Surgeon: Kendall Andrew Click Yes if Unassisted: Yes Anesthesia Type: General Operative Notes Findings: contracted intra hepatic gallbladder Specimen(s): other (gallbladder) Estimated Blood Loss (mL): 100 Procedure in detail: The patient was placed supine on the table and bilateral lower extremity compression devices were applied. Anesthesia was induced they were intubated with an endotracheal tube and received 3g of Ancef. A time-out was performed. They were prepped and draped in sterile fashion. An infraumbilical incision was made, the umbilical stalk was elevated and the fascia was sharply incised entering the abdomen atraumatically. A blunt tip 12mm balloon trocar was then inserted, pneumoperitoneum was established and inspection of the abdomen demonstrated no evidence of injury. They were placed head up and right side up and then a 11 mm port was placed high in the epigastrium and two 5mm in the right upper quadrant. The gallbladder was contracted and intrahepatic in nature. Given these findings it was approached in a top-down fashion. The gallbladder was dissected off of the liver bed in a top-down fashion. With the gallbladder mobilized the bottom of the cystic plate was visualized. The hepatocystic triangle was meticulosly skeletonized using hook electrocautery of all fat and fibrous tissue from both the front and the back. Only two structures were then clearly seen entering the gallbladder the cystic duct and the cystic artery. With the critical view of safety fully established the cystic duct was clipped twice proximally and once distally using the 10 mm Weck hemoclip clip applied under direct visualization and then sharply divided. The cystic artery was divided in the same fashion. The gallbladder was removed from the liver bed using electro cautery. The liver bed was then inspected for hemostasis and this was achieved. Placed a sheet of Surgicel over the gallbladder fossa for additional hemostasis. Abdomen was irrigated with sterile saline and inspection was made that showed the clips in good position. The specimen was removed using Endo-Catch. The abdomen was desufflated. The umbilical fascia was closed with 0 Vicryl in a [id number] fashion under direct visualization. Skin incisions were irrigated and closed with 4-0 Monocryl. 30 ml of 0.25% bupivacaine was infiltrated into the subcutaneous tissue of the incisions. The wounds were sealed with Dermabond. Patient emerged from anesthesia was extubated and transferred to recovery in stable condition. The sponge and instrument count at the end of the operation was correct. Complications: none Post-operative Condition: stable Disposition: same day surgery
[2021-12-11] MEDS: ONDANSETRON 4 MG/2 ML INJ IV (15:05)
[2021-12-11] MEDS: OXYCODONE IR 5 MG TABLET PO (15:19)
--- NOTE | 2021-12-11 15:20 | SUR.PHASEI ---
Garrick DALY spoke to Dr Andrew. states pump and dump x 48 hours after procedure. If patient continues to take pain pills to not breastfeed through duration of course of taking.
== END 2021-12-11 15:55 | disposition home or self-care (01) ==
LOC: OR 09:48 → AC 09:51
PROVIDERS: PCP Registered Nurse Diabetes Educator; Referring Provider Surgery; Visit Provider Surgery
PROC: 0FT44ZZ Resection of Gallbladder, Percutaneous Endoscopic Approach (ICD-10-PCS; CPT 47562; principal; 2021-12-11 11:30)
DX: K80.10 Calculus of gallbladder with chronic cholecystitis without obstruction (principal); F32.A Depression, unspecified
CPT/HCPCS: 47562; 81025; 82962; J0131; J0330; J0690; J1100; J1170; J2250; J2405; J2704; J3010

== ENCOUNTER 2021-12-16 22:09 | Emergency (ER) | payer OTHER, SELFPAY ==
[2021-12-16 22:26] VITALS: BP 172/97; PULSE 94; RESP 16; TEMP 37.1; O2SAT 97; BMI 47.2
--- NOTE | 2021-12-16 22:56 | PC.NURSE ---
pt had a lap lio done 5 days ago 2 days ago she started having aches, and chills, denies any fever, is passing gas, 3 incision sites are intact with steri strips no redness or drainage. the 4th site at the umbilicus is noted red, non-tender, no obvious drainage and pt denies drainage. pt also c/o pain under her right shoulder blade that radiates to the left shoulder blade. denies any cold s/s
[2021-12-16 23:07] LABS: Add Manual Diff / Slide Review NO; Basophils Absolute Auto 100 /uL (0-100); Basophils Percent Auto 0.6 % (0-2); Eosinophils Absolute Auto 300 /uL (0-450); Eosinophils Percent Auto 2.8 % (2-4); Hematocrit 36.2 % (36-46); Hemoglobin 12.4 g/dL (12.0-16.0); Lymphocytes Absolute Auto 2200 /uL (1100-4500); Lymphocytes Percent Auto 22.3 % (25-40); Mean Corpuscular HGB Conc 34.2 % (30-36); Mean Corpuscular Hemoglobin 26.6 PG (26-34); Mean Corpuscular Volume 77.9 fL (80-100); Monocytes Absolute Auto 800 /uL (0-900); Monocytes Percent Auto 8.1 % (3-14); Neutrophils Absolute Auto 6500 /uL (1500-7000); Neutrophils Percent Auto 66.2 % (50-75); Platelet Count 249 X10^3/uL (150-400); Red Blood Cell Count 4.65 X10^6/uL (4.0-5.2); Red Cell Distribution Width 14.2 % (11.6-14.8); White Blood Cell Count 9.8 X10^3/uL (4.5-11.0)
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
--- NOTE | 2021-12-16 23:31 | DI.RAD.S_ITS ---
PROCEDURE: XR CHEST 1V INDICATIONS: chest pain TECHNIQUE: One view of the chest was acquired. COMPARISON: None. FINDINGS: Surgical changes and devices: None. Lungs and pleura: Low lung volumes. Perihilar peribronchial thickening and mild perihilar interstitial prominence. No consolidation, pleural effusion, or pneumothorax. Mediastinum: Mediastinal contours appear normal. Heart size is normal. Bones and chest wall: No suspicious bony lesions. Overlying soft tissues appear unremarkable. IMPRESSION: 1. Low lung volumes and carotid central bronchovascular markings. This can be seen in bronchitis, reactive airways disease, or centralized atelectatic change. Dictated by: Gabrielle Castro M.D. on 12/17/2021 at 0:28 Approved by: Gabrielle Castro M.D. on 12/17/2021 at 0:29
[2021-12-17 00:01] LABS: Lactate (Lactic Acid) 1.1 mmol/L (0.7-2.1)
[2021-12-17 00:02] LABS: Alanine Aminotransferase 65 IU/L (<35); Albumin 4.1 g/dL (3.5-5.0); Albumin Globulin Ratio 1.2 (1.0-2.8); Alkaline Phosphatase 79 U/L (38-126); Aspartate Aminotransferase 35 IU/L (14-36); BUN Creatinine Ratio 13.9 (6-22); Bilirubin Total 0.5 mg/dL (0.2-1.3); Blood Urea Nitrogen 11 mg/dL (7-17); Calcium 8.9 mg/dL (8.4-10.2); Carbon Dioxide 29 mmol/L (22-32); Chloride 106 mmol/L (98-107); Estimated Glomerular Filt Rate > 60 mL/min (>60); Globulin 3.5 g/dL (1.7-4.1); Glucose 116 mg/dL (70-100); HEMOLYSIS < 15 (0-50); Lipase 58 U/L (23-300); Potassium 3.9 mmol/L (3.4-5.1); Sodium 142 mmol/L (137-145); Total Protein 7.6 g/dL (6.3-8.2)
[2021-12-17 00:24] LABS: Creatine Kinase 55 U/L (30-135)
[2021-12-17 00:37] LABS: Troponin I < 0.012 ng/mL (0.01-0.034)
--- NOTE | 2021-12-17 00:42 | DI.CT.S_ITS ---
PROCEDURE: CT ABDOMEN PELVIS W CON INDICATIONS: post op lio ab pain TECHNIQUE: After the administration of oral and IV contrast, axial sections were acquired from the lung bases to the pubic symphysis. Coronal and sagittal reformats were performed. For radiation dose reduction, the following was used: automated exposure control, adjustment of mA and/or kV according to patient size. COMPARISON: None. FINDINGS: Image quality: Excellent. Lung bases: Bilateral linear atelectatic change. Heart: No significant findings. ABDOMEN: Liver: Mild hepatomegaly and moderate hepatic steatosis. Gallbladder: Surgically absent Biliary ducts: Nondilated. Pancreas: Normal. Spleen: Normal size. Adrenal Glands: No nodules. Kidneys and Ureters: Symmetric enhancement. No hydronephrosis or hydroureter. No urinary calcifications. Stomach and Bowel: Stomach, small bowel loops, and colon are unremarkable. Normal appendix. Peritoneum: No abnormal intraperitoneal fluid. No free air. Ventral Wall: There is a small right paracentral periumbilical hernia. There is moderate subcutaneous inflammation in the infraumbilical soft tissues. No focal fluid collection. Mild skin thickening. Abdominal Nodes: No retroperitoneal or mesenteric adenopathy by size criteria. Vessels: Aorta and inferior vena cava are normal in size. PELVIS: Pelvic Organs: Normal uterus and ovaries. Bladder: Decompressed and normal. Pelvic Nodes: No enlarged lymph nodes. Miscellaneous: No inguinal hernias are seen. Bones: Unremarkable. IMPRESSION: 1. Subcutaneous inflammation in the periumbilical region without visible abscess. 2. Fat containing right periumbilical ventral hernia. 3. Moderate hepatic steatosis. Dictated by: Gabrielle Castro M.D. on 12/17/2021 at 1:36 Approved by: Gabrielle Castro M.D. on 12/17/2021 at 1:40
[2021-12-17] MEDS: KETOROLAC 30 MG/ML VIAL 15 MG IV (00:54)
[2021-12-17 00:57] VITALS: PULSE 85; O2SAT 97
[2021-12-17 00:58] VITALS: BP 172/97; PULSE 84; RESP 18; O2SAT 97
[2021-12-17 01:00] VITALS: PULSE 94; O2SAT 97
[2021-12-17 01:30] VITALS: PULSE 103; O2SAT 98
[2021-12-17 02:00] VITALS: PULSE 109; O2SAT 97
[2021-12-17 02:17] VITALS: BP 123/70; PULSE 89; O2SAT 96
[2021-12-17] MEDS: OXYCODONE/APAP 5/325 PREPACK 1 BOTTLE MISC (02:20)
== END 2021-12-17 02:23 | disposition home or self-care (01) ==
PROVIDERS: Emergency Provider Emergency Medicine; PCP Registered Nurse Diabetes Educator
DX: G89.18 Other acute postprocedural pain (principal); K42.9 Umbilical hernia without obstruction or gangrene
CPT/HCPCS: 36415; 71045; 74177; 80053; 81003; 81025; 82550; 82553; 83605; 83690; 84484; 85025; 87040; 93005; 96374; 99284; J1885; Q9967

== ENCOUNTER 2022-02-03 17:49 | Emergency (ER) | payer OTHER, SELFPAY ==
[2022-02-03 17:56] VITALS: BP 138/73; PULSE 77; RESP 18; TEMP 36.6; O2SAT 97
--- NOTE | 2022-02-03 18:08 | DI.CT.S_ITS ---
PROCEDURE: CT ABDOMEN PELVIS W CON INDICATIONS: eval for ventral hernia TECHNIQUE: After the administration of IV contrast, axial sections were acquired from the lung bases to the pubic symphysis. Coronal and sagittal reformats were performed. For radiation dose reduction, the following was used: automated exposure control, adjustment of mA and/or kV according to patient size. COMPARISON: [facility], CT, CT ABDOMEN PELVIS W CON, 12/17/2021, 1:07. FINDINGS: Image quality: Excellent. Lung bases: Unremarkable. Heart: Heart is normal in size. ABDOMEN: Liver: There is diffuse hypoattenuation of the liver consistent with fatty infiltration. Gallbladder: Surgically absent. There is minimal fat stranding in the gallbladder fossa compatible with recent cholecystectomy. No residual fluid collection identified. Biliary ducts: No biliary ductal dilatation. Pancreas: Unremarkable. Spleen: Normal in size. Adrenal Glands: No adrenal nodules. Kidneys and Ureters: No hydronephrosis. Stomach and Bowel: Stomach, small bowel loops, and colon are normal in caliber and wall thickness. The appendix is normal in appearance. There is colonic diverticulosis without acute diverticulitis. Peritoneum: No abnormal intraperitoneal fluid. No free air. Ventral Wall: There is a fat-containing periumbilical ventral abdominal hernia. No evidence of bowel herniation. Abdominal Nodes: No retroperitoneal or mesenteric adenopathy by size criteria. Vessels: Aorta and inferior vena cava are normal in size. PELVIS: Pelvic Organs: Unremarkable. Bladder: Unremarkable. Pelvic Nodes: No enlarged lymph nodes. Miscellaneous: No inguinal hernias are seen. Bones: Visualized osseous structures demonstrate no suspicious focal lesions. IMPRESSION: 1. Fat-containing periumbilical ventral abdominal hernia without evidence of bowel herniation. 2. Hepatic steatosis. 3. Minimal residual fat stranding in the gallbladder fossa consistent with sequelae of recent cholecystectomy. No residual fluid collection. Dictated by: Doroteo Rowe M.D. on 02/03/2022 at 20:55 Approved by: Doroteo Rowe M.D. on 02/03/2022 at 20:59
[2022-02-03 19:29] LABS: Add Manual Diff / Slide Review NO; Basophils Absolute Auto 0 /uL (0-100); Basophils Percent Auto 0.6 % (0-2); Eosinophils Absolute Auto 100 /uL (0-450); Eosinophils Percent Auto 1.8 % (2-4); Hematocrit 37.4 % (36-46); Lymphocytes Absolute Auto 2400 /uL (1100-4500); Lymphocytes Percent Auto 31.9 % (25-40); Mean Corpuscular HGB Conc 34.9 % (30-36); Mean Corpuscular Hemoglobin 27.5 PG (26-34); Mean Corpuscular Volume 78.8 fL (80-100); Monocytes Absolute Auto 600 /uL (0-900); Monocytes Percent Auto 7.3 % (3-14); Neutrophils Absolute Auto 4500 /uL (1500-7000); Neutrophils Percent Auto 58.4 % (50-75); Platelet Count 246 X10^3/uL (150-400); Red Blood Cell Count 4.74 X10^6/uL (4.0-5.2); Red Cell Distribution Width 13.7 % (11.6-14.8); White Blood Cell Count 7.7 X10^3/uL (4.5-11.0)
[2022-02-03 19:40] LABS: BUN Creatinine Ratio 17.3 (6-22); Blood Urea Nitrogen 13 mg/dL (7-17); Calcium 9.3 mg/dL (8.4-10.2); Carbon Dioxide 28 mmol/L (22-32); Chloride 103 mmol/L (98-107); Estimated Glomerular Filt Rate > 60 mL/min (>60); Glucose 103 mg/dL (70-100); HEMOLYSIS < 15 (0-50); Sodium 139 mmol/L (137-145)
[2022-02-03 19:53] LABS: Pregnancy Test Serum,Qual Negative (Negative)
[2022-02-03 22:01] VITALS: BP 123/61; PULSE 72; O2SAT 100
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
== END 2022-02-03 22:37 | disposition home or self-care (01) ==
PROVIDERS: Emergency Provider Emergency Medicine; PCP Registered Nurse Diabetes Educator
DX: R10.11 Right upper quadrant pain (principal); K43.9 Ventral hernia without obstruction or gangrene
CPT/HCPCS: 36415; 74177; 80048; 84703; 85025; 99283

== ENCOUNTER → 2022-05-27 11:25 | Outpatient (CLI) | payer OTHER, SELFPAY ==
[2022-05-27 13:27] LABS: Alanine Aminotransferase 35 IU/L (<35); Albumin 4.1 g/dL (3.5-5.0); Albumin Globulin Ratio 1.3 (1.0-2.8); Alkaline Phosphatase 73 U/L (38-126); Aspartate Aminotransferase 28 IU/L (14-36); Bilirubin Total 0.4 mg/dL (0.2-1.3); Bilirubin Unconjugated 0.3 mg/dL (0.0-1.1); Globulin 3.2 g/dL (1.7-4.1); HEMOLYSIS 32 (0-50); Total Protein 7.3 g/dL (6.3-8.2)
== END ==
PROVIDERS: PCP Registered Nurse Diabetes Educator; Referring Provider Registered Nurse Diabetes Educator; Visit Provider Registered Nurse Diabetes Educator
DX: K76.0 Fatty (change of) liver, not elsewhere classified (principal)
CPT/HCPCS: 36415; 80076

== ENCOUNTER → 2022-09-02 13:28 | Outpatient (CLI) | payer OTHER, SELFPAY ==
[2022-09-02 14:45] LABS: BUN Creatinine Ratio 13.4 (6-22); Blood Urea Nitrogen 9 mg/dL (7-17); Calcium 8.9 mg/dL (8.4-10.2); Carbon Dioxide 28 mmol/L (22-32); Chloride 100 mmol/L (98-107); Estimated Glomerular Filt Rate > 60 mL/min (>60); Glucose 86 mg/dL (70-100); HEMOLYSIS < 15 (0-50); Sodium 138 mmol/L (137-145)
[2022-09-02 14:59] LABS: HCG Quantitative /Beta subunit < 2.4 mIU/mL
== END ==
PROVIDERS: PCP Registered Nurse Diabetes Educator; Referring Provider Registered Nurse Diabetes Educator; Visit Provider Registered Nurse Diabetes Educator
DX: Z51.81 Encounter for therapeutic drug level monitoring (principal)
CPT/HCPCS: 36415; 80048; 84702

== ENCOUNTER 2022-09-11 19:03 | Emergency (ER) | payer OTHER, SELFPAY ==
[2022-09-11 19:08] VITALS: BP 132/77; PULSE 97; RESP 20; TEMP 36.4; O2SAT 98; BMI 45.9
[2022-09-11 20:50] VITALS: PULSE 104; O2SAT 100
[2022-09-11 20:59] VITALS: BP 137/76; PULSE 100; O2SAT 99
[2022-09-11 21:00] VITALS: PULSE 89; O2SAT 99
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
[2022-09-11 21:30] VITALS: BP 142/76; PULSE 84; O2SAT 99
[2022-09-11] MEDS: ONDANSETRON 4 MG ODT PREPACK 1 BOTTLE MISC (21:42)
[2022-09-11] MEDS: TRAMADOL 50 MG PREPACK 1 BOTTLE MISC (21:42)
== END 2022-09-11 21:47 | disposition home or self-care (01) ==
PROVIDERS: Emergency Provider Emergency Medicine; PCP Registered Nurse Diabetes Educator
DX: K42.9 Umbilical hernia without obstruction or gangrene (principal); R10.9 Unspecified abdominal pain
CPT/HCPCS: 99281; 99283

== ENCOUNTER 2022-10-03 14:01 | Day surgery (SDC) | payer OTHER, SELFPAY ==
[2022-10-01 08:42] VITALS: BMI 45.9
[2022-10-03] VITALS (9 sets, daily range): BP systolic 116–140; BP diastolic 66–76; PULSE 72–114; RESP 15–25; TEMP 36.2–36.4; O2SAT 96–100; BMI 45.9
[2022-10-03] MEDS: LACTATED RINGERS 1,000 ML 100 ML IV ×2 (15:04→16:17)
--- NOTE | 2022-10-03 15:28 | PM.PREOP ---
Pre-operative Note Interval Note History & Physical reviewed/Exam performed by Physician: Yes Changes to H&P: No
--- NOTE | 2022-10-03 15:55 | SUR.OPER ---
Supine on padded OR bed, head on pillow, arms secured on padded arm boards at <90 degrees abduction, legs uncrossed, safety belt at thigh, tape over blanket over lower legs. Pt positioned per direction and supervision of Dr Andrew.
[2022-10-03] MEDS: CEFAZOLIN VIAL 3 GM in SODIUM CHLORIDE 0.9% 100 ML IV (15:59)
--- NOTE | 2022-10-03 17:05 | P.OP_ITS ---
Operative Date/Time/Diagnoses Date of procedure: 10/03/22 Time of procedure: 17:05 Pre-op diagnosis: Umbilical hernia Post-op diagnosis: other (Ladan umbilical hernia) Procedure & Clinicians Procedure: Open umbilical hernia repair with mesh Same procedure as scheduled: Yes Indications: 27-year-old woman who has a symptomatic umbilical hernia. Her BMI is 46 plan was for weight loss prior to hernia repair given the increased risk of infection and recurrence however she has been unable to do this. She is now had at least 2 emergency department visits for uncontrolled pain secondary to the hernia. She is here today for elective repair. Surgeon: Kendall Andrew Anesthesia Type: General Operative Notes Findings: 6 x 2 cm fascial defect containing omentum Specimen(s): none sent Estimated Blood Loss (mL): 20 Procedure in detail: Patient was brought to the operating room placed supine on the table. Bilateral lower extremity compression devices were applied. She received 3 g of Ancef prior to skin incision. She was prepped and draped in sterile fashion. Time- out was performed. A vertical infraumbilical incision was made. Subcutaneous tissues were divided. There was a periumbilical hernia to the patient's right of midline. The hernia sac was grasped and dissected out from the subcutaneous tissue. The hernia was traced down to the level of fascia and then it was dissected off of the fascia. Hernia sac was opened it contained viable omentum. The fascial edges were trimmed back to healthy tissue. The fascial defect measured approximately 6 x 3 cm. A Bard Ventralex mesh was placed into the abdomen with the anti-adhesive surface down such that the defect was well covered in all directions. The mesh was then secured to the overlying fascia in a circumferential fashion using interrupted Ethibond suture. The fascia was then reapproximated over the mesh and the subcutaneous tissues were closed with Vicryl suture. Skin was closed with 4-0 Monocryl followed by the application of Dermabond. Total of 30 mL of bupivacaine was infiltrated into the skin. The sponge and instrument count at the end of the operation was correct. Patient emerged from anesthesia was transferred to recovery in stable condition. Complications: none Post-operative Condition: stable Disposition: same day surgery
[2022-10-03] MEDS: OXYCODONE IR 5 MG TABLET PO (17:40)
[2022-10-03] MEDS: ACETAMINOPHEN 325 MG TABLET 500 MG PO (17:41)
--- NOTE | 2022-10-03 18:05 | SUR.PHASEII ---
got dressed with minimal assistance. take to in WC, all belongings accounted for.
== END 2022-10-03 18:06 | disposition home or self-care (01) ==
PROVIDERS: PCP Registered Nurse Diabetes Educator; Referring Provider Surgery; Visit Provider Surgery
PROC: (CPT 49594; principal; 2022-10-03 15:30)
DX: K42.0 Umbilical hernia with obstruction, without gangrene (principal); E66.9 Obesity, unspecified; Z68.42 Body mass index [BMI] 45.0-49.9, adult
CPT/HCPCS: 49594; 81025; 82962; J0330; J0690; J1170; J1885; J2405; J2704; J2765; J3010

== ENCOUNTER → 2023-03-05 14:44 | Outpatient (CLI) | payer OTHER, SELFPAY ==
--- NOTE | 2023-03-05 14:44 | DI.US.S_ITS ---
PROCEDURE: US PELVIC COMPLETE INDICATIONS: MENORRHAGIA R/O UTERINE/ENDOMETRIAL PATHOLOGY TECHNIQUE: Real-time scanning was performed of the pelvic organs, with image documentation. Additional endovaginal scanning was necessary due to incomplete visualization of the adnexal and endometrial structures by transabdominal scanning. COMPARISON: [facility], US, US PELVIC COMPLETE, 09/21/2020, 16:14. FINDINGS: Uterus: Uterus is anteverted and normal in size at 7.9 x 3.5 x 4.0 cm. The myometrium is homogeneous. The endometrium measures 9 mm combined thickness. Ovaries: The right ovary measures 2.9 x 2 x 2.2 cm, with a calculated ovarian volume of 7 cc. The left ovary measures 3.2 x 2.2 x 3.2 cm, with a calculated ovarian volume of 12 cc. The ovaries have a normal sonographic appearance. Less than 12 follicles can be seen in each ovary. No adnexal masses are seen. Other: No pathologic free abdominal or pelvic fluid. IMPRESSION: Unremarkable pelvic ultrasound. No findings to explain the patient's menorrhagia. We strive to produce accurate, complete, and clear reports of imaging services. To assist us in improving patient care, this report was composed using standard report templates and voice recognition software. Therefore, it may contain abnormal punctuation, insertions and/or omissions. Occasional wrong-word or sound-alike substitutions may occur. Though we review the report and make efforts to correct it, we do recommend that the report be read carefully in proper context to recognize any text inaccuracies. Dictated by: Alfredo Karimi M.D. on 03/05/2023 at 16:04 Approved by: Alfredo Karimi M.D. on 03/05/2023 at 16:05
== END ==
PROVIDERS: PCP Registered Nurse Diabetes Educator; Referring Provider Obstetrics & Gynecology; Visit Provider Obstetrics & Gynecology
DX: N92.0 Excessive and frequent menstruation with regular cycle (principal); B35.3 Tinea pedis; Z51.81 Encounter for therapeutic drug level monitoring
CPT/HCPCS: 36415; 76830; 76856; 80076

== ENCOUNTER → 2023-03-05 15:12 | Outpatient (CLI) | payer OTHER, SELFPAY ==
[2023-03-05 17:18] LABS: Alanine Aminotransferase 43 IU/L (<35); Albumin 4.2 g/dL (3.5-5.0); Albumin Globulin Ratio 1.2 (1.0-2.8); Alkaline Phosphatase 93 U/L (38-126); Aspartate Aminotransferase 31 IU/L (14-36); Bilirubin Total 0.4 mg/dL (0.2-1.3); Bilirubin Unconjugated 0.3 mg/dL (0.0-1.1); Globulin 3.5 g/dL (1.7-4.1); HEMOLYSIS < 15 (0-50); Total Protein 7.7 g/dL (6.3-8.2)
== END ==
PROVIDERS: PCP Registered Nurse Diabetes Educator; Referring Provider Registered Nurse Diabetes Educator; Visit Provider Registered Nurse Diabetes Educator
DX: B35.3 Tinea pedis (principal); Z51.81 Encounter for therapeutic drug level monitoring
CPT/HCPCS: 36415; 80076

== ENCOUNTER 2023-04-10 07:43 | Day surgery (SDC) | payer OTHER, SELFPAY ==
[2023-03-30 13:39] VITALS: BMI 45.7
[2023-04-10] VITALS (11 sets, daily range): BP systolic 117–127; BP diastolic 64–78; PULSE 57–88; RESP 15–23; TEMP 36.1–36.4; O2SAT 95–98; BMI 45.7
--- NOTE | 2023-04-10 | PATH_ITS ---
[facility] Accession Number: [id number] No. of containers..02 Tissue . 01 Material submitted: . PART A: fallopian tube - BILATERAL FALLOPIAN TUBES PART B: endometrium - ENDOMETRIAL CURETTINGS . 01 Diagnosis: A. Bilateral Fallopian Tubes, Bilateral Salpingectomy: Cross-sections of bilateral fallopian tubes within normal limits. . B. Endometrium, Curettage: Proliferative phase endometrium with focal features suggestive of breakdown. No evidence of endometrioid intraepithelial neoplasia or malignancy. [facility] 04/23/2023 1104 Local . 01 Electronically signed: . Pauly Hickman MD, Pathologist NPI- [id number] . 01 Gross description: . A. The specimen is received in formalin, labeled with the patient's name, , and bilateral fallopian tubes, and consists of two unoriented, violaceous, fimbriated fallopian tubes. The first measures 5.4 cm in length and 0.7 cm in diameter. The second measures 3.9 cm in length and 0.8 cm in diameter. No paratubal cysts are seen. The external surfaces are inked blue and black. No lumens are identified. Deboning Team Leader sections to include the entire bisected fimbriae of each tube are submitted in cassettes A1-A2. B. The specimen is received in formalin, labeled with the patient's name, , and endometrial curettings, and consists of multiple fragments of red-lozano soft tissue admixed with mucoid material aggregating to 3.0 x 2.8 x 0.3 cm. The tissue is filtered into a mesh bag and entirely submitted in cassette B1. ([id number]) /[facility] 04/11/2023 1335 Local . 01 Pathologist provided ICD-10: Z30.2 . 01 CPT . 867398, [id number] Specimen Comment: A courtesy copy of this report has been sent to [phone] Performed at: 01 [facility] [address] [place] [address] [id number] MD Doroteo Singh MD Phone: [phone]
[2023-04-10] MEDS: LACTATED RINGERS 1,000 ML 42 ML IV ×2 (08:06→11:11)
--- NOTE | 2023-04-10 08:50 | PM.PREOP ---
Pre-operative Note COVID-19 COVID-19 status: Not tested Interval Note History & Physical reviewed/Exam performed by Physician: Yes Changes to H&P: No
--- NOTE | 2023-04-10 09:25 | SUR.OPER ---
Lithotomy on padded OR bed, head on pillow, arms wrapped in gel pads and tucked at side, additional arm support under left arm. Legs secured in padded yellow fins stirrups.
[2023-04-10] MEDS: BUPIVACAINE 0.5% (PF) 30 ML, EPINEPHrine 0.15 MG INJ (09:49)
--- NOTE | 2023-04-10 10:30 | PM.GYNOP.1 ---
Operative Date/Time/Diagnoses Date of procedure: 04/10/23 Time of procedure: 09:35 Pre-op diagnosis: Request for sterilization Menorrhagia Post-op diagnosis: same Procedure & Clinicians Procedure: Procedures Operation Date: 04/10/23 09:00 Actual Procedure Side Surgeon p Laparoscopic Salpingectomy Bilateral Paulino Wang MD s Hysteroscopy w/ Poss. BX's, Endometrial Novasure Ablation Paulino Wang MD Indications: Mildred is a 27-year-old , LMP 02/20-02/24/2023 who presented in February 2023 to discuss possible sterilization.? Patient has discussed possible vasectomy with her partner but he has not moved forward with scheduling and patient would like to move forward with sterilization procedure herself.? She is had 3 spontaneous vaginal Center periods are regular but after her last baby, her periods have become much, much heavier and longer, now lasting 5-7 days with passage of clots.? Patient denies intermenstrual bleeding or postcoital bleeding however.? Her Paps have always been normal with her most recent Pap in January 2023.? Prior abdominal surgery includes gallbladder removal in 2021 and an umbilical hernia performed in 2021 as well.? Both procedures were performed here at [facility] by Dr. Andrew. Recent pelvic US performed on 03/05/2023 shows: FINDINGS:? ?? Uterus:? Uterus is anteverted and normal in size at 7.9 x 3.5 x 4.0 cm. The myometrium is homogeneous. ? The endometrium measures 9 mm combined thickness.? ? Ovaries:? The right ovary measures 2.9 x 2 x 2.2 cm, with a calculated ovarian volume of 7 cc. The left ovary measures 3.2 x 2.2 x 3.2 cm, with a calculated ovarian volume of 12 cc. The ovaries have a normal sonographic appearance. Less than 12 follicles can be seen in each ovary.? No adnexal masses are seen. ? Other:? No pathologic free abdominal or pelvic fluid.? ? IMPRESSION:? Unremarkable pelvic ultrasound.? No findings to explain the patient's menorrhagia. Patient counseled regarding alternatives, risks, benefits, and potential complications associated with laparoscopic bilateral salpingectomy.? Due to the patient's extremely heavy periods which have been steadily worsening, she would also like to proceed with endometrial ablation via NovaSure.? Patient is aware that laparoscopic bilateral salpingectomy is a procedure which will result in her permanently and irreversibly being unable to bear children without benefit of assisted reproductive technology.? In addition she understands that there is a small (1-09/999) chance of failure and should failure to prevent occur following the procedure, the possibility of ectopic gestation is extremely high.? With full understanding of the above, laparoscopic bilateral salpingectomy and hysteroscopy with possible biopsies, dilation and curettage of the uterus, and endometrial ablation (NovaSure) scheduled.? She presents today for her scheduled surgery. Surgeon: Paulino Wang Anesthesia Type: General Operative Notes Findings: Normal pelvis and abdomen as visualized laparoscopically. The endometrial cavity is unremarkable with no localized abnormality. Post ablation there were no visible areas of residual viable endometrium noted. Closure Type: primary Specimen(s): endometrial curettings, left tube and right tube Estimated blood loss (mL): 1 Blood products transfused: none Procedure in detail: With the patient under satisfactory general anesthesia in the modified dorsal lithotomy position, the perineum, vagina, and abdomen were prepped and draped for IUD removal and laparoscopic bilateral salpingectomy. A pre-surgical safety time-out was then taken in accordance with [facility] Main OR protocols. The umbilicus was then infiltrated with 0.5% Marcaine with epinephrine and 1 cm vertical incision was made in the inferior aspect of the umbilicus. Veress needle was used to insufflate the abdomen with carbon dioxide and once appropriately insufflated, 5 mm bladeless trocar and sleeve were inserted through the incision. Proper placement of the sleeve was confirmed with laparoscopic visualization and insufflation of the abdomen continued. A 2nd and 3rd 5 mm laparoscopic port were placed in the right and left mid quadrants using a similar technique and using a 3 puncture technique, the abdomen and pelvis were visualized with the findings as noted above. The distal aspect of the left fallopian tube was then grasped with a grasping forceps and using a Power Seal device, fimbria ovarica was coagulated and divided the dissection using the Power Seal continuing across the mesosalpinx to the cornua where the base fallopian tube was coagulated and divided. The left fallopian tube was then removed through one of the ports and submitted pathologic specimen. Attention was then turned to the right adnexa with distal tube grasped with a grasping forcep. The Power Seal device was then used to coagulate fimbria ovarica and the dissection was carried across the mesosalpinx to the cornua where the fallopian tube on the right side was amputated at the cornua following coagulation proximal tube the Power Seal device. Pelvis was inspected and there were no abnormalities noted following bilateral salpingectomy. The pneumoperitoneum was then vented and the ports removed from the abdominal wall. Port incisions were then closed with 4-0 Monocryl using inverted interrupted stitches and skin glue was applied. Appropriate dressings were then applied. A bivalve speculum was inserted in the vagina and the cervix visualized. The anterior lip of the cervix was grasped with a single-tooth tenaculum and the endocervical canal was then dilated to 6 mm diameter. Hysteroscope was placed through the endocervical canal into the endometrial cavity and the cavity was visualized. There were no localized abnormalities within the endometrial cavity and the endometrium itself was unremarkable. Both tubal ostia were visualized. The hysteroscope was then withdrawn and a fractional dilation and curettage was accomplished with separate pathologic specimen submitted for the endometrial and endocervical curettings. The uterine cavity was then sounded with the NovaSure device and found to be 5.5 cm in depth. The NovaSure device was then inserted through the endocervical canal into the endometrial cavity and the width of the cavity determined to be 3.5 cm. Cavity integrity test demonstrated the cavity to be intact and ablation was initiated. Ablation time was 64 seconds with power utilized 91 w. The NovaSure device was then removed from the endometrial cavity and hysteroscopy demonstrated excellent ablation effect. The tenaculum was then removed from the anterior lip of the cervix and no bleeding was encountered. The speculum was then removed from the vagina and the patient awakened from anesthesia. She was then transferred to the PACU for a period of observation and recovery having tolerated the procedure well. Complications: none Post-operative Condition: stable Disposition: PACU Plan for aftercare: Routine postoperative care and postop visit scheduled 2 weeks following her surgery
[2023-04-10] MEDS: ONDANSETRON 4 MG/2 ML INJ IV (10:39)
[2023-04-10] MEDS: OXYCODONE IR 5 MG TABLET PO (10:50)
[2023-04-10] MEDS: METOCLOPRAMIDE 10 MG/2 ML INJ IV (11:10)
== END 2023-04-10 12:21 | disposition home or self-care (01) ==
PROVIDERS: PCP Registered Nurse Diabetes Educator; Referring Provider Obstetrics & Gynecology; Visit Provider Obstetrics & Gynecology
PROC: 0UT74ZZ Resection of Bilateral Fallopian Tubes, Percutaneous Endoscopic Approach (ICD-10-PCS; CPT 58661; principal; 2023-04-10 09:00)
PROC: 0U5B8ZZ Destruction of Endometrium, Via Natural or Artificial Opening Endoscopic (ICD-10-PCS; CPT 58563; 2023-04-10 09:00)
DX: Z30.2 Encounter for sterilization (principal); N92.0 Excessive and frequent menstruation with regular cycle
CPT/HCPCS: 58661; 58563; J0171; J0330; J1100; J1885; J2405; J2704; J2765; J3010

== ENCOUNTER → 2023-04-29 10:59 | Outpatient (CLI) | payer OTHER, SELFPAY ==
[2023-04-29 12:36] LABS: Hematocrit 37.2 % (36-46); Hemoglobin 12.7 g/dL (12.0-16.0); Mean Corpuscular HGB Conc 34.2 % (30-36); Mean Corpuscular Volume 81.8 fL (80-100); Platelet Count 242 X10^3/uL (150-400); Red Blood Cell Count 4.54 X10^6/uL (4.0-5.2); Red Cell Distribution Width 13.4 % (11.6-14.8); White Blood Cell Count 7.4 X10^3/uL (4.5-11.0)
[2023-04-29 13:04] LABS: HEMOLYSIS < 15 (0-50); Iron 66 ug/dL (37-170)
[2023-04-29 13:15] LABS: Percent Iron Saturation 16 % (15-50); Total Iron Binding Capacity 402 ug/dL (265-497); Transferrin 283 mg/dL (206-381)
[2023-04-29 13:28] LABS: Free T4, Direct Thyroxine 1.26 ng/dL (0.78-2.19)
[2023-04-29 13:40] LABS: Thyroid Stimulating Hormone 1.45 uIU/mL (0.47-4.68)
[2023-04-29 13:48] LABS: Ferritin 18 ng/mL (6-137)
== END ==
PROVIDERS: PCP Registered Nurse Diabetes Educator; Referring Provider Registered Nurse Diabetes Educator; Visit Provider Registered Nurse Diabetes Educator
DX: L65.0 Telogen effluvium (principal); L65.9 Nonscarring hair loss, unspecified
CPT/HCPCS: 36415; 82728; 83540; 83550; 84439; 84443; 85027

== ENCOUNTER 2024-01-10 16:15 | Emergency (ER) | payer OTHER, SELFPAY ==
[2024-01-10] VITALS (11 sets, daily range): BP systolic 116–157; BP diastolic 62–100; PULSE 58–70; RESP 18; TEMP 36.9; O2SAT 98–100; BMI 47.6
[2024-01-10 16:48] LABS: Appearance Urine UA CLEAR; Bilirubin Urine UA NEGATIVE (NEGATIVE); Color Urine UA YELLOW; Glucose Urine UA NEGATIVE (Negative); Ketones Urine UA NEGATIVE (NEGATIVE); Leukocyte Esterase Urine UA NEGATIVE (NEGATIVE); Nitrite Urine UA NEGATIVE (Negative); Occult Blood Urine UA NEGATIVE (Negative); Protein Urine UA NEGATIVE (Negative); Specific Gravity Urine UA <=1.005 (1.000-1.035); Urobilinogen Urine UA 0.2 E.U./dL (0.2)
--- NOTE | 2024-01-10 17:08 | DI.US.S_ITS ---
PROCEDURE: US PELVIC COMPLETE INDICATIONS: LEFT PELVIC PAIN TECHNIQUE: Real-time scanning was performed of the pelvic organs, with image documentation. Additional endovaginal scanning was necessary due to incomplete visualization of the adnexal and endometrial structures by transabdominal scanning. COMPARISON: [facility], US, US PELVIC COMPLETE, 03/05/2023, 14:50. FINDINGS: Uterus: Uterus is anteverted and normal in size at 7.5 x 3 x 5.2 cm. The myometrium is homogeneous. The endometrium measures 5.9 mm combined thickness. Ovaries: The right ovary measures 2 x 2.5 x 2.1 cm, with a calculated ovarian volume of 5.4 cc. The left ovary measures 4.7 x 2.4 x 3.4 cm, with a calculated ovarian volume of 20 cc. The ovaries have a normal sonographic appearance. Less than 12 follicles can be seen in each ovary. No adnexal masses are seen. There are 2 simple cysts within the left adnexa largest measuring 3 cm and the 2nd measuring 1.7 cm Other: No pathologic free abdominal or pelvic fluid. IMPRESSION: Simple left ovarian cyst measuring up to 3 cm otherwise normal pelvic ultrasound. We strive to produce accurate, complete, and clear reports of imaging services. To assist us in improving patient care, this report was composed using standard report templates and voice recognition software. Therefore, it may contain abnormal punctuation, insertions and/or omissions. Occasional wrong-word or sound-alike substitutions may occur. Though we review the report and make efforts to correct it, we do recommend that the report be read carefully in proper context to recognize any text inaccuracies. Dictated by: Jaron Fernández M.D. on 01/10/2024 at 17:18 Approved by: Jaron Fernández M.D. on 01/10/2024 at 17:22
[2024-01-10 17:14] LABS: Bacteria Urine None Seen; Culture Indicated Urine Cult Not Indicated; RBC Urine None Seen (0-5/HPF); Squamous Epithelial Cell Urine None Seen (0-5/HPF); Urine Volume 10mL (spun); WBC Urine None Seen (0-5/HPF)
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
--- NOTE | 2024-01-11 06:10 | PC.NURSE ---
This RN received verbal orders from MANUEL Way for a urine test. Orders placed. Lab aware.
[2024-01-11 06:19] LABS: Pregnancy Test Urine Negative (Negative)
== END 2024-01-10 23:48 | disposition home or self-care (01) ==
PROVIDERS: Emergency Medicine; Emergency Provider Emergency Medicine; PCP Registered Nurse Diabetes Educator
DX: N83.202 Unspecified ovarian cyst, left side (principal); R10.32 Left lower quadrant pain
CPT/HCPCS: 76830; 76856; 81001; 81025; 93975; 99281; 99283

== ENCOUNTER → 2024-04-05 07:18 | Outpatient (CLI) | payer OTHER, SELFPAY ==
--- NOTE | 2024-04-05 07:20 | DI.US.S_ITS ---
PROCEDURE: US PELVIC COMPLETE INDICATIONS: F/U US ovarian cysts TECHNIQUE: Real-time scanning was performed of the pelvic organs, with image documentation. Additional endovaginal scanning was necessary due to incomplete visualization of the adnexal and endometrial structures by transabdominal scanning. COMPARISON: [facility], US, US PELVIC COMPLETE, 01/10/2024, 17:43. FINDINGS: Uterus: Uterus is anteverted and normal in size at 7.6 x 3.1 x 4 cm. The myometrium is homogeneous. The endometrium measures 6.6 mm combined thickness. The vagina are within normal limits. Ovaries: The right ovary measures 1.8 x 2.4 x 2.4 cm, with a calculated ovarian volume of 5.4 cc. The left ovary measures 4.9 x 2.7 x 3.9 cm, with a calculated ovarian volume of 27.1 cc. Multiple anechoic simple in the left ovary, the largest of which measures 3.1 x 2.7 x 2.9 cm. Less than 12 follicles can be seen in each ovary. No adnexal masses are seen. Normal color Doppler flow in the bilateral ovaries. Other: No pathologic free abdominal or pelvic fluid. IMPRESSION: 1. Normal sonographic appearance of the uterus and right ovary. 2. Multiple cysts in the left ovary, the largest of which measures 3.1 x 2.7 x 2.9 cm. Findings could predispose to ovarian torsion. We strive to produce accurate, complete, and clear reports of imaging services. To assist us in improving patient care, this report was composed using standard report templates and voice recognition software. Therefore, it may contain abnormal punctuation, insertions and/or omissions. Occasional wrong-word or sound-alike substitutions may occur. Though we review the report and make efforts to correct it, we do recommend that the report be read carefully in proper context to recognize any text inaccuracies. Dictated by: Stone Perez M.D. on 04/05/2024 at 14:05 Approved by: Stone Perez M.D. on 04/05/2024 at 14:10
== END ==
LOC: US 07:19
PROVIDERS: PCP Registered Nurse Diabetes Educator; Referring Provider Registered Nurse Diabetes Educator; Visit Provider Registered Nurse Diabetes Educator
DX: N83.201 Unspecified ovarian cyst, right side (principal); N83.202 Unspecified ovarian cyst, left side
CPT/HCPCS: 76830; 76856; 93976

== ENCOUNTER 2024-04-17 21:02 | Emergency (ER) | payer OTHER, SELFPAY ==
[2024-04-17 21:12] VITALS: BP 133/75; PULSE 85; RESP 17; TEMP 36.6; O2SAT 98; BMI 49.5
--- NOTE | 2024-04-17 22:14 | PC.NURSE ---
Pt states she has a known ovarian cyst and is concerned for torsion.
--- NOTE | 2024-04-17 22:32 | DI.US.S_ITS ---
PROCEDURE: US PELVIC COMPLETE INDICATIONS: RLQ PAIN, 'CONCERNED ABOUT TORSION' TECHNIQUE: Real-time scanning was performed of the pelvic organs, with image documentation. Additional endovaginal scanning was necessary due to incomplete visualization of the adnexal and endometrial structures by transabdominal scanning. COMPARISON: [facility], US, US PELVIC COMPLETE, 01/10/2024, 17:43. [facility], , US PELVIC COMPLETE, 03/05/2023, 14:50. [facility], , US PELVIC COMPLETE, 04/05/2024, 7:30. FINDINGS: Uterus: Uterus is anteverted and normal in size at 8.4 x 3.7 x 5 cm. The myometrium is homogeneous. The endometrium measures 4 mm combined thickness. Fluid is seen along the endometrial stripe. No abnormal vascularity can be seen along the endometrial stripe. Ovaries: The right ovary measures 2.6 x 2.7 x 2.1 cm, with a calculated ovarian volume of 7.6 cc. The left ovary measures 4.7 x 2.6 x 3.2 cm, with a calculated ovarian volume of 19.6 cc. Within the left ovary, there is a 3.3 cm simple cyst. The ovaries otherwise have a normal sonographic appearance. Less than 12 follicles can be seen in each ovary. No adnexal masses are seen. Normal appearing arterial waveforms are confirmed to each ovary. Other: No pathologic free abdominal or pelvic fluid. IMPRESSION: Negative for ovarian torsion. Normal appearing right ovary. 3.3 cm left ovarian simple cyst seen. In a patient of this age, this is almost certainly benign. If it would be clinically appropriate, a followup pelvic ultrasound could be considered in 6 weeks to assure resolution/ improvement. We strive to produce accurate, complete, and clear reports of imaging services. To assist us in improving patient care, this report was composed using standard report templates and voice recognition software. Therefore, it may contain abnormal punctuation, insertions and/or omissions. Occasional wrong-word or sound-alike substitutions may occur. Though we review the report and make efforts to correct it, we do recommend that the report be read carefully in proper context to recognize any text inaccuracies. Dictated by: Paul Cerrato M.D. on 04/17/2024 at 22:37 Approved by: Paul Cerrato M.D. on 04/17/2024 at 22:40
[2024-04-17] MEDS: KETOROLAC 30 MG/ML VIAL 15 MG IV (22:46)
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
[2024-04-17 22:58] LABS: Add Manual Diff / Slide Review NO; Basophils Absolute Auto 100 /uL (0-100); Basophils Percent Auto 0.6 % (0-2); Eosinophils Absolute Auto 200 /uL (0-450); Eosinophils Percent Auto 1.8 % (2-4); Hematocrit 37.2 % (36-46); Hemoglobin 12.9 g/dL (12.0-16.0); Lymphocytes Absolute Auto 2700 /uL (1100-4500); Lymphocytes Percent Auto 30.5 % (25-40); Mean Corpuscular HGB Conc 34.6 % (30-36); Mean Corpuscular Hemoglobin 28.9 PG (26-34); Mean Corpuscular Volume 83.5 fL (80-100); Monocytes Absolute Auto 700 /uL (0-900); Monocytes Percent Auto 7.9 % (3-14); Neutrophils Absolute Auto 5200 /uL (1500-7000); Neutrophils Percent Auto 59.2 % (50-75); Platelet Count 255 X10^3/uL (150-400); Red Blood Cell Count 4.46 X10^6/uL (4.0-5.2); White Blood Cell Count 8.7 X10^3/uL (4.5-11.0)
[2024-04-17 23:08] LABS: Albumin 4.2 g/dL (3.5-5.0); Albumin Globulin Ratio 1.3 (1.0-2.8); Aspartate Aminotransferase 36 IU/L (14-36); BUN Creatinine Ratio 13.7 (6-22); Blood Urea Nitrogen 10 mg/dL (7-17); Calcium 9.2 mg/dL (8.4-10.2); Carbon Dioxide 26 mmol/L (22-32); Chloride 103 mmol/L (98-107); Estimated Glomerular Filt Rate > 60 mL/min (>60); Globulin 3.2 g/dL (1.7-4.1); Glucose 110 mg/dL (70-100); HEMOLYSIS < 15 (0-50); Potassium 3.6 mmol/L (3.4-5.1); Total Protein 7.4 g/dL (6.3-8.2)
[2024-04-17 23:35] LABS: Alanine Aminotransferase 49 IU/L (<35); Alkaline Phosphatase 62 U/L (38-126); Bilirubin Total 0.7 mg/dL (0.2-1.3); Sodium 138 mmol/L (137-145)
[2024-04-18 00:12] VITALS: BP 130/63; PULSE 65; RESP 18; O2SAT 98
== END 2024-04-18 00:14 | disposition home or self-care (01) ==
PROVIDERS: Emergency Provider Emergency Medicine; PCP Registered Nurse Diabetes Educator
DX: N83.202 Unspecified ovarian cyst, left side (principal); R10.2 Pelvic and perineal pain
CPT/HCPCS: 36415; 76830; 76856; 80053; 81003; 81025; 85025; 93975; 96374; 99284; J1885

== ENCOUNTER → 2024-06-03 14:48 | Outpatient (CLI) | payer OTHER, SELFPAY ==
[2024-06-03 18:20] LABS: Add Manual Diff / Slide Review NO; Basophils Absolute Auto 0 /uL (0-100); Basophils Percent Auto 0.7 % (0-2); Eosinophils Absolute Auto 100 /uL (0-450); Eosinophils Percent Auto 2.3 % (2-4); Hematocrit 37.5 % (36-46); Hemoglobin 12.9 g/dL (12.0-16.0); Lymphocytes Absolute Auto 2200 /uL (1100-4500); Lymphocytes Percent Auto 34.4 % (25-40); Mean Corpuscular HGB Conc 34.4 % (30-36); Mean Corpuscular Volume 84.3 fL (80-100); Monocytes Absolute Auto 300 /uL (0-900); Monocytes Percent Auto 5.4 % (3-14); Neutrophils Absolute Auto 3700 /uL (1500-7000); Neutrophils Percent Auto 57.2 % (50-75); Platelet Count 264 X10^3/uL (150-400); Red Blood Cell Count 4.45 X10^6/uL (4.0-5.2); Red Cell Distribution Width 12.8 % (11.6-14.8); White Blood Cell Count 6.4 X10^3/uL (4.5-11.0)
[2024-06-03 19:13] LABS: Alanine Aminotransferase 34 IU/L (<35); Albumin 3.6 g/dL (3.5-5.0); Albumin Globulin Ratio 1.1 (1.0-2.8); Alkaline Phosphatase 82 U/L (38-126); Aspartate Aminotransferase 25 IU/L (14-36); Bilirubin Total 0.4 mg/dL (0.2-1.3); Blood Urea Nitrogen 9 mg/dL (7-17); Calcium 8.9 mg/dL (8.4-10.2); Carbon Dioxide 28 mmol/L (22-32); Chloride 104 mmol/L (98-107); Cholesterol 120 mg/dL (140-199); Estimated Glomerular Filt Rate > 60 mL/min (>60); Globulin 3.3 g/dL (1.7-4.1); Glucose 131 mg/dL (70-100); HDL Cholesterol 38 mg/dL (40-60); HEMOLYSIS < 15 (0-50); LDL Cholesterol Calculated 51 mg/dL (<100); Potassium 4.8 mmol/L (3.4-5.1); Sodium 134 mmol/L (137-145); Total Protein 6.9 g/dL (6.3-8.2); Triglycerides 153 mg/dL (35-150)
[2024-06-03 19:38] LABS: TSH w/ Reflex to FT4 0.67 uIU/mL (0.47-4.68)
== END ==
PROVIDERS: PCP Registered Nurse Diabetes Educator; Referring Provider Physician Assistant; Visit Provider Physician Assistant
DX: E66.9 Obesity, unspecified (principal)
CPT/HCPCS: 36415; 80053; 80061; 84443; 85025

== ENCOUNTER → 2024-09-05 15:02 | Outpatient (CLI) | payer OTHER, SELFPAY ==
--- NOTE | 2024-09-05 15:03 | DI.US.S_ITS ---
PROCEDURE: US PELVIC COMPLETE INDICATIONS: Follow up left ovarian cysts TECHNIQUE: Real-time scanning was performed of the pelvic organs, with image documentation. Additional endovaginal scanning was necessary due to incomplete visualization of the adnexal and endometrial structures by transabdominal scanning. COMPARISON: [facility], US, US PELVIC COMPLETE, 04/17/2024, 23:02. FINDINGS: Uterus: 9.1 x 6.3 x 3.1 cm. Endometrium measures combined thickness of 6 mm. Small amount of fluid is present. Trace fluid also seen in the endocervix. Ovaries: Right ovary is nonenlarged at 5 cc. A left simple appearing cyst measures 3.4 x 2.8 cm. Overall left ovary is mildly enlarged at 18 cc. Other: No pathologic free abdominal or pelvic fluid. IMPRESSION: Simple appearing left ovarian cyst measures 3.4 cm, similar to prior. Overall left ovary is mildly enlarged. Trace fluid in the endocervix and endometrium. Endometrium combined thickness is within normal limits for age. Dictated by: Uday Perez M.D. on 09/05/2024 at 17:11 Approved by: Uday Perez M.D. on 09/05/2024 at 17:14
== END ==
PROVIDERS: PCP Registered Nurse Diabetes Educator; Referring Provider Obstetrics & Gynecology; Visit Provider Obstetrics & Gynecology
DX: R10.32 Left lower quadrant pain (principal); G89.29 Other chronic pain; N83.292 Other ovarian cyst, left side
CPT/HCPCS: 76830; 76856

== ENCOUNTER → 2025-03-23 13:32 | Outpatient (CLI) | payer OTHER, SELFPAY ==
--- NOTE | 2025-03-23 13:33 | DI.US.S_ITS ---
PROCEDURE: US PELVIC COMPLETE INDICATIONS: Persistent left ovarian cyst, LLQ pain TECHNIQUE: Real-time scanning was performed of the pelvic organs, with image documentation. Additional endovaginal scanning was necessary due to incomplete visualization of the adnexal and endometrial structures by transabdominal scanning. COMPARISON: [facility], US, US PELVIC COMPLETE, 09/05/2024, 15:17. FINDINGS: Uterus: Uterus is anteverted and normal in size at 7.2 x 3.1 x 4.7 cm. The myometrium is homogeneous. The endometrium measures 4 mm combined thickness. Minimal amount of fluid within the endocervical canal. Ovaries: The right ovary measures 2.3 x 2.9 x 2.2 cm, with a calculated ovarian volume of 7.7 cc. The left ovary measures 3.1 x 4.2 x 2.5 cm, with a calculated ovarian volume of 17.1 cc. There is a 1.5 x 1.6 x 1.4 cm simple cyst in the left ovary. There is a minimally complicated cyst measuring 2.2 x 2.1 x 3.0 cm. The right ovary has a normal sonographic appearance. Less than 12 follicles can be seen in each ovary. No adnexal masses are seen. Normal vascularity identified in the left ovary. Other: No pathologic free abdominal or pelvic fluid. IMPRESSION: 1. Normal sonographic appearance of the uterus and right ovary. 2. Minimally complicated 3.0 cm left ovarian cyst which appears similar to prior exam . 3. Additional 1.6 cm simple left ovarian cyst. We strive to produce accurate, complete, and clear reports of imaging services. To assist us in improving patient care, this report was composed using standard report templates and voice recognition software. Therefore, it may contain abnormal punctuation, insertions and/or omissions. Occasional wrong-word or sound-alike substitutions may occur. Though we review the report and make efforts to correct it, we do recommend that the report be read carefully in proper context to recognize any text inaccuracies. Dictated by: Randolph Garcia M.D. on 03/24/2025 at 9:18 Approved by: Randolph Garcia M.D. on 03/24/2025 at 9:22
== END ==
PROVIDERS: PCP Registered Nurse Diabetes Educator; Referring Provider Obstetrics & Gynecology; Visit Provider Obstetrics & Gynecology
DX: N83.292 Other ovarian cyst, left side (principal); R10.32 Left lower quadrant pain; G89.29 Other chronic pain
CPT/HCPCS: 76830; 76856; 93976

== ENCOUNTER 2025-05-22 10:51 | Day surgery (SDC) | payer OTHER, SELFPAY ==
[2025-05-15 13:34] VITALS: BMI 38.5
[2025-05-22] VITALS (10 sets, daily range): BP systolic 88–111; BP diastolic 48–67; PULSE 51–70; RESP 15–23; TEMP 36.3–36.6; O2SAT 21–99; BMI 39.4
[2025-05-22] MEDS: LACTATED RINGERS 1,000 ML 120 ML IV (12:00)
--- NOTE | 2025-05-22 12:16 | PM.PREOP ---
Pre-operative Note Interval Note History & Physical reviewed/Exam performed by Physician: Yes Changes to H&P: No H&P completed within 30 days and has changed as indicated here:: see H&P from 05/08/25
--- NOTE | 2025-05-22 13:43 | P.OP_ITS ---
Operative Date/Time/Diagnoses Date of procedure: 05/22/25 Time of procedure: 12:30 Pre-op diagnosis: Left ovarian cyst Chronic pelvic pain Post-op diagnosis: same Procedure & Clinicians Procedure: Laparoscopic bilateral ovarian cystectomy Same procedure(s) as scheduled: Yes Indications: 29-year-old female with known ovarian cyst, persistent over imaging over the last 1-2 years, with persistent pelvic pain, desiring surgical management. Surgeon: Chiqui Agrawal Assisted?: Yes Seasonal Customer Service Associate: Pattie Laura Anesthesia Type: General Operative Notes Findings: 2-3 cm left ovarian cyst noted. 1-2 cm right ovarian cyst noted. Normal- appearing uterus. Bilateral fallopian tubes surgically absent. Normal- appearing posterior cul-de-sac. Specimen(s): none sent Applied: none Estimated Blood Loss (mL): 1 Blood products transfused: none Procedure in detail: The risks, benefits, indications and alternatives of the procedure were reviewed with the patient and informed consent was obtained. The pt was taken to the operating room where general anesthesia was obtained without difficulty. The pt was then placed in the low lithotomy position using gel-padded Nolan Stirrups. Pt was then prepped and draped in the usual sterile fashion. The bladder was drained with a straight catheter. Attention was then turned to the patient?s abdomen where a 5mm skin incision was made in the inferior aspect of the umbilicus after injection of 0.25% marcaine. A 5mm trocar and sleeve were then carefully introduced into the peritoneal cavity under direct visualization at a 90-degree angle while tenting up the abdominal wall, however intraperitoneal placement could not be confirmed, so the trocar was removed. A Veress needle was then inserted, with a pneumoperitoneum obtained. Umbilical placement of a trocar was still unclear if the trocar was intraperitoneal or preperitoneal, thus a trocar was then inserted at [place] point, where intraperitoneal placement was confirmed with visualization. Upon entry into the peritoneal cavity, structures immediately below the incision were inspected and found to be free of injury. Two additional 5mm trocars were placed under direct laparoscopic visualization after injection of 0.25% marcaine at each site, one on the right side of the pelvis and one inferior to the umbilicus, as there was omental adhesions noted at the superior umbilical region. A survey of the pt?s abdomen and pelvis was notable for the above findings. Using atraumatic graspers, the left ovary was grasped, and the monopolar scissors were used to open the cyst and drain it. Attempt was made with [place] graspers to shell out the cyst wall, however the cyst wall was to then an unable to be . The right ovary was then inspected, and had a small simple cyst that was punctured with the monopolar scissors and drained. The abdomen was subsequently suctioned, and excellent hemostasis was noted. The gas was then turned off and all CO2 was removed from the pt?s abdomen. The trocars were removed. The skin incision sites were reapproximated using 4-0 monocryl and dermabond. All instruments were then removed from the vagina. At the completion of the case the sponge and needle counts were correct x 2. The patient tolerated the procedure well and was taken to the PACU in stable condition. Complications: none Post-operative Condition: stable Disposition: same day surgery
[2025-05-22] MEDS: LACTATED RINGERS 1,000 ML 42 ML IV ×3 (14:03→16:35)
[2025-05-22] MEDS: ONDANSETRON 4 MG/2 ML INJ IV (16:34)
== END 2025-05-22 17:03 | disposition home or self-care (01) ==
PROVIDERS: PCP Registered Nurse Diabetes Educator; Referring Provider Student in an Organized Health Care Education/Training Program; Visit Provider Student in an Organized Health Care Education/Training Program
PROC: (CPT 58661; principal; 2025-05-22 12:30)
DX: N83.202 Unspecified ovarian cyst, left side (principal); N83.201 Unspecified ovarian cyst, right side; R10.2 Pelvic and perineal pain
CPT/HCPCS: 58662; J1100; J2250; J2405; J2704; J3010

== ENCOUNTER 2025-05-24 19:46 | Emergency (ER) | payer OTHER, SELFPAY ==
[2025-05-24 19:55] VITALS: BP 123/60; PULSE 70; RESP 15; TEMP 36.7; O2SAT 100; BMI 39.4
[2025-05-24 19:57] VITALS: BP 123/60; PULSE 66; O2SAT 100
[2025-05-24 20:00] VITALS: PULSE 79; O2SAT 100
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
--- NOTE | 2025-05-24 20:19 | PC.NURSE ---
05/22 had surgery to remove cysts on ovaries. Noticed umbilical incision started to ooze/drain today. Feeling bloated. No BM since procedure.
[2025-05-24 20:30] VITALS: PULSE 63; O2SAT 100
[2025-05-24 20:35] VITALS: BP 112/61; PULSE 68; O2SAT 100
[2025-05-24 20:43] LABS: Culture Indicated Urine Specimen Cultured
== END 2025-05-24 20:48 | disposition home or self-care (01) ==
PROVIDERS: Emergency Provider Family Medicine; PCP Registered Nurse Diabetes Educator
DX: S31.109A Unspecified open wound of abdominal wall, unspecified quadrant without penetration into peritoneal cavity, initial encounter (principal); K59.01 Slow transit constipation
CPT/HCPCS: 81003; 81015; 81025; 87086; 99282